=== PATIENT | male | born 1965 | race Caucasian/White ===

== ENCOUNTER 2018-03-06 12:32 | Inpatient (IN) ==
[2018-03-06] MEDS ORDERED: 0.9 % Sodium Chloride 1,000 ML IVC ONE ×2 (13:07→15:32)
[2018-03-06] MEDS ORDERED: Ondansetron 4 MG/2 ML VIAL IVP PRN ×2 (13:07→19:14)
[2018-03-06] MEDS ORDERED: *HR* FentaNYL (PF) 100 MCG/2 ML VIAL IVP ONE ×2 (13:09→16:09)
--- NOTE | 2018-03-06 13:12 | Emergency Department Note ---
Disposition Clinical Impression: Small bowel obstruction Abdominal pain Qualifiers: Abdominal location: unspecified location Qualified Code(s): R10.9 - Unspecified abdominal pain Nausea and vomiting Qualifiers: Vomiting type: unspecified Vomiting Intractability: unspecified Qualified Code( s): R11.2 - Nausea with vomiting, unspecified Leukocytosis Qualifiers: Leukocytosis type: unspecified Qualified Code(s): D72.829 - Elevated white blood cell count, unspecified Disposition: Admitted As Inpatient Condition: Fair Referrals: Jona Denton MD [Primary Care Provider] - Forms: ED Satisfaction Letter, Work/School Release Time of Disposition: 18:20 Abdominal Pain HPI - General Chief Complaint: ED Abdominal Pain Stated Complaint: Needs Xray S/p proceedure,vomiting Time Seen by Provider: 03/06/18 12:41 Source: patient, family Nursing Notes Reviewed: Yes Vital Signs Reviewed: Yes - History of Present Illness HPI Narrative: Patient is a 53-year-old male complains of acute onset of abdominal pain, nausea , vomiting that started this morning. Patient states that he recently had a pill camera study ordered by Dr. Clark his vehicle damage appraiser to investigate possible Crohn's disease. Study was initiated early yesterday morning. Patient should have passed the pill but patient denies seeing the pill in his bowel movement. Last bowel movement was very small times one day ago. Patient is unable to tolerate oral intake and no blood and secretions. Patient states pain 7/10 constant generalized crampiness without radiation. Pain Scale: 7 - Related Data Home Medications Medication Instructions Recorded Confirmed Cetirizine HCl [All Day Allergy] 10 mg PO DAILY 03/06/18 03/06/18 Allergies Allergy/AdvReac Type Severity Reaction Status Date / Time No Known Allergies Allergy Verified 03/06/18 15:38 All systems ED: reviewed and negative except as stated. Review of Systems: As Per HPI Constitutional: Denies: fever, chills ENT ED: Denies: congestion Cardiovascular: Denies: chest pain Respiratory: Denies: cough, dyspnea Gastrointestinal: Reports: abdominal pain, nausea, vomiting. Denies: hematemesis, melena Musculoskeletal: Denies: back pain Abdominal Pain PMH - Past Medical History Medical history: Reports: no medical history Male Surgical History: Reports: no surgical history Psychiatric history: Reports: no psych history - Social History Smoking status: Never smoker Alcohol use: Reports: occasionally Drug use: Reports: none Physical Exam Vital Signs Temperature 98.8 F 03/06/18 12:40 Pulse Rate 80 03/06/18 12:40 Respiratory Rate 18 03/06/18 12:40 Blood Pressure 155/102 03/06/18 12:40 O2 Sat by Pulse Oximetry 100 03/06/18 12:40 Temperature 98.8 F 03/06/18 12:40 Pulse Rate 80 03/06/18 12:40 Respiratory Rate 18 03/06/18 12:40 Blood Pressure 155/102 03/06/18 12:40 O2 Sat by Pulse Oximetry 100 03/06/18 12:40 Oxygen Delivery Oxygen Delivery Room Air CONSTITUTIONAL: Well-appearing; well-nourished; A&O X 3, in moderate distress. Patient is afebrile, hypertensive at 155/102. O2 sat 100% on room air. Patient is nontoxic appearing HEAD: Normocephalic; atraumatic EYES: PERRL, no scleral icterus NOSE: The nose is normal in appearance without rhinorrhea NECK: No JVD or distended neck veins RESP: Normal chest excursion with respiration; breath sounds clear and equal bilaterally; no wheezes, rhonchi, or rales CARD: Regular rhythm, without murmurs, rub or gallop ABD: Non-distended; generalized tenderness to palpation all abdominal mora, soft, without rigidity but has muscle guarding, no rebound tenderness and no pulsatile mass. No discoloration CHEST: No pain with palpation SKIN: Normal for age and race; warm and dry without diaphoresis ; no apparent lesions EXTREMITIES: Pulses are 2 plus and equal times 4 extremities, no peripheral edema or calf muscle pain - General Limitations: no limitations General appearance: alert, in no apparent distress Course - Reevaluation(s) Reevaluation #1: Patient well and nausea control. Controlling pain, and added additional dose of fentanyl Time: 16:11 - Consultations Consultation #1: Dr. Hummel of Gen. surgery states he was seated patient in consult. Time: 15:56 Consultation #2: Dr. Clark of gastroenterology recommends NG tube placement and surgical consult. admit to medicine Time: 16:15 Consultation #3: Aamir Badillo the hospitalist has accepted the patient for admission Time: 16:28 Vital Signs Temperature 98.8 F 03/06/18 12:40 Pulse Rate 80 03/06/18 12:40 Respiratory Rate 18 03/06/18 12:40 Blood Pressure 155/102 03/06/18 12:40 O2 Sat by Pulse Oximetry 100 03/06/18 12:40 Temperature 98.8 F 03/06/18 12:40 Pulse Rate 80 03/06/18 12:40 Respiratory Rate 18 03/06/18 12:40 Blood Pressure 155/102 03/06/18 12:40 O2 Sat by Pulse Oximetry 100 03/06/18 12:40 Oxygen Delivery Oxygen Delivery Room Air Abdominal Pain - MDM Narrative Medical decision making narrative: CT abdomen and pelvis ordered to identify possible retained pill camera that may be causing acute blockage of patient's GI tract.. Chest x-ray ordered to identify any damage to mediastinum. CT abdomen and pelvis shows small bowel obstruction. The pill camera was identified in the distal ileum which most likely the cause of the obstruction. Surgical consultation has been made, plan is for admission, along with placement of NG tube per gastroenterology Dr. Clark. The CT results per radiology. Abdomen/Pelvis CT 03/06/18 13:41 IMPRESSION: 1. Moderately distended small bowel loops. A metallic camera can be seen in the distal ileum which by history was inserted the day prior. Ileus or early bowel obstruction should be considered. 2. Small amount of free fluid in the pelvis. 3. Incidental fatty infiltration of the liver. Dr. Clark came and saw the patient in the emergency department. After discussion concerning the lack of nausea and vomiting, it was decided to hold on NG tube placement. Aamir Badillo the hospitalist has accepted the patient for admission - Lab Data Lab results reviewed: Yes I reviewed the patient's lab results. Lab results narrative: Short CBC 03/06/18 Range/Units 14:14 WBC 14.3 H (4.3-11.1) K/mcL Hgb 17.4 H (12.9-16.9) g/dL Hct 52.3 H (37.5-50.1) % Plt Count 169 (140-400) K/mcL Neutrophils # 13.2 H (1.6-8.9) K/mcL BMP 03/06/18 Range/Units 14:14 Sodium 140 (136-145) mEq/L Potassium 4.0 (3.5-5.1) mEq/L Chloride 103 (98-107) mEq/L Carbon Dioxide 27 (23-29) mEq/L BUN 13 (6-20) mg/dL Creatinine 1.11 (0.70-1.30) mg/dL Glucose 121 H (70-105) mg/dL Calcium 9.7 (8.6-10.3) mg/dL Liver Function 03/06/18 Range/Units 14:14 Total Bilirubin 2.4 H (0.3-1.0) mg/dL Direct Bilirubin 0.5 H (0.0-0.2) mg/dL AST 15 (13-39) Units/L ALT 21 (7-52) Units/L Alkaline Phosphatase 57 (34-104) Units/L Albumin 4.6 (3.5-5.7) g/dL Result diagrams: 03/06/18 14:14 03/06/18 14:14 Lab Results 03/06/18 03/06/18 03/06/18 Range/Units 14:14 14:14 14:14 WBC 14.3 H (4.3-11.1) K/mcL RBC 5.77 H (4.19-5.50) M/mcL Hgb 17.4 H (12.9-16.9) g/dL Hct 52.3 H (37.5-50.1) % MCV 90.6 (83.0-100.0) fL MCH 30.2 (28.0-33.3) pg MCHC 33.3 (31.6-35.5) g/dL RDW 13.7 (11.5-14.5) % Plt Count 169 (140-400) K/mcL MPV 9.1 L (9.4-12.4) fL Immature Gran % 0.3 (0-4) % Seg Neutrophils % 92.3 % Lymphocytes % 3.0 % Monocytes % 4.2 % Eosinophils % 0.0 % Basophils % 0.2 % Neutrophils # 13.2 H (1.6-8.9) K/mcL Lymphocytes # 0.4 L (0.6-4.6) K/mcL Monocytes # 0.6 (0.0-1.3) K/mcL Eosinophils # 0.0 (0.0-0.6) K/mcL Basophils # 0.0 (0.0-0.2) K/mcL Sodium 140 (136-145) mEq/L Potassium 4.0 (3.5-5.1) mEq/L Chloride 103 (98-107) mEq/L Carbon Dioxide 27 (23-29) mEq/L BUN 13 (6-20) mg/dL Creatinine 1.11 (0.70-1.30) mg/dL Est GFR ( Amer) > 60 (> 60) Est GFR (Non-Af Amer) > 60 (> 60) BUN/Creatinine Ratio 12 (6-26) Glucose 121 H (70-105) mg/dL Calculated Osmolality 291 (280-300) Lactic Acid 1.5 (0.5-2.2) mmol/L Calcium 9.7 (8.6-10.3) mg/dL Total Bilirubin 2.4 H (0.3-1.0) mg/dL Direct Bilirubin 0.5 H (0.0-0.2) mg/dL Indirect Bilirubin 1.9 H (0.0-1.2) mg/dL AST 15 (13-39) Units/L ALT 21 (7-52) Units/L Alkaline Phosphatase 57 (34-104) Units/L Serum Total Protein 7.2 (6.4-8.9) g/dL Albumin 4.6 (3.5-5.7) g/dL Globulin 2.6 (2.4-3.5) g/dL Albumin/Globulin Ratio 1.8 (1.1-2.2) Lipase 16 (11-82) Units/L - Radiology Data Radiology results reviewed: Yes I reviewed the patient's radiology results. Chest X-Ray 03/06/18 13:14 IMPRESSION: No acute process. D/ / Vinay Baron MD / Vinay Baron MD Interpreting Provider: Vinay Baron MD Abdomen/Pelvis CT 03/06/18 13:41 IMPRESSION: 1. Moderately distended small bowel loops. A metallic camera can be seen in the distal ileum which by history was inserted the day prior. Ileus or early bowel obstruction should be considered. 2. Small amount of free fluid in the pelvis. 3. Incidental fatty infiltration of the liver. D/ / 03/06/2018 14:21:53 Keya Duran MD / agustín Interpreting Provider: Keya Duran MD - EKG Data EKG attestation: Yes I reviewed and interpreted this EKG. EKG results narrative: EKG taken 03/06/2018 at 1408 hrs. shows a sinus rhythm at a rate of 68 beats minute with no acute ST elevations or depressions in any leads, no QRS widening QT prolongation.
--- NOTE | 2018-03-06 13:40 | Emergency Department Note ---
Disposition Clinical Impression: Small bowel obstruction Abdominal pain Qualifiers: Abdominal location: unspecified location Qualified Code(s): R10.9 - Unspecified abdominal pain Nausea and vomiting Qualifiers: Vomiting type: unspecified Vomiting Intractability: unspecified Qualified Code( s): R11.2 - Nausea with vomiting, unspecified Disposition: Admitted As Inpatient Condition: Fair General Adult HPI - General Chief complaint: ED Abdominal Pain Stated complaint: Needs Xray S/p proceedure,vomiting Time Seen by Provider: 03/06/18 12:41 Source: patient, family Limitations: no limitations - History of Present Illness Pain Scale: 7 - Related Data Home Medications Medication Instructions Recorded Confirmed Cetirizine HCl [All Day Allergy] 10 mg PO DAILY 03/06/18 03/06/18 Allergies Allergy/AdvReac Type Severity Reaction Status Date / Time No Known Allergies Allergy Verified 03/06/18 15:38 Constitutional: Denies: fever, chills ENT ED: Denies: congestion Cardiovascular: Denies: chest pain Respiratory: Denies: cough, dyspnea Gastrointestinal: Reports: abdominal pain, nausea, vomiting. Denies: hematemesis, melena Musculoskeletal: Denies: back pain Past Medical History - Past Medical History Medical history: Reports: no medical history Surgical history: Reports: herniorrhaphy, vasectomy Psychiatric history: Reports: no psych history - Social History Smoking Status: Never smoker Smokeless Tobacco Status: No Alcohol use: Reports: occasionally Drug use: Reports: none Physical Exam - General Limitations: no limitations General appearance: alert, in no apparent distress Course Vital Signs Temperature 98.8 F 03/06/18 12:40 Pulse Rate 80 03/06/18 12:40 Respiratory Rate 18 03/06/18 12:40 Blood Pressure 155/102 03/06/18 12:40 O2 Sat by Pulse Oximetry 100 03/06/18 12:40 Temperature 99.3 F 03/06/18 17:48 Pulse Rate 78 03/06/18 17:48 Respiratory Rate 14 03/06/18 17:48 Blood Pressure 135/73 03/06/18 17:48 O2 Sat by Pulse Oximetry 97 03/06/18 17:48 Oxygen Delivery Oxygen Delivery Room Air Medical Decision Making - Lab Data Result diagrams: 03/06/18 14:14 03/06/18 14:14 Lab Results 03/06/18 03/06/18 03/06/18 Range/Units 14:14 14:14 14:14 WBC 14.3 H (4.3-11.1) K/mcL RBC 5.77 H (4.19-5.50) M/mcL Hgb 17.4 H (12.9-16.9) g/dL Hct 52.3 H (37.5-50.1) % MCV 90.6 (83.0-100.0) fL MCH 30.2 (28.0-33.3) pg MCHC 33.3 (31.6-35.5) g/dL RDW 13.7 (11.5-14.5) % Plt Count 169 (140-400) K/mcL MPV 9.1 L (9.4-12.4) fL Immature Gran % 0.3 (0-4) % Seg Neutrophils % 92.3 % Lymphocytes % 3.0 % Monocytes % 4.2 % Eosinophils % 0.0 % Basophils % 0.2 % Neutrophils # 13.2 H (1.6-8.9) K/mcL Lymphocytes # 0.4 L (0.6-4.6) K/mcL Monocytes # 0.6 (0.0-1.3) K/mcL Eosinophils # 0.0 (0.0-0.6) K/mcL Basophils # 0.0 (0.0-0.2) K/mcL Sodium 140 (136-145) mEq/L Potassium 4.0 (3.5-5.1) mEq/L Chloride 103 (98-107) mEq/L Carbon Dioxide 27 (23-29) mEq/L BUN 13 (6-20) mg/dL Creatinine 1.11 (0.70-1.30) mg/dL Est GFR ( Amer) > 60 (> 60) Est GFR (Non-Af Amer) > 60 (> 60) BUN/Creatinine Ratio 12 (6-26) Glucose 121 H (70-105) mg/dL Calculated Osmolality 291 (280-300) Lactic Acid 1.5 (0.5-2.2) mmol/L Calcium 9.7 (8.6-10.3) mg/dL Total Bilirubin 2.4 H (0.3-1.0) mg/dL Direct Bilirubin 0.5 H (0.0-0.2) mg/dL Indirect Bilirubin 1.9 H (0.0-1.2) mg/dL AST 15 (13-39) Units/L ALT 21 (7-52) Units/L Alkaline Phosphatase 57 (34-104) Units/L Serum Total Protein 7.2 (6.4-8.9) g/dL Albumin 4.6 (3.5-5.7) g/dL Globulin 2.6 (2.4-3.5) g/dL Albumin/Globulin Ratio 1.8 (1.1-2.2) Lipase 16 (11-82) Units/L Attestation Statement - Attestation Attestation: I examined this patient and my medical decision-making was reviewed with the ORTHOTIC/PROSTHETIC CLINICIAN/PA/Advanced Practice Nurse/Resident Physician. I agree with the documented findings, disposition and treatment plan as described except to the extent set forth below. Patient does have generalized abdominal pain which is concerning as he did have a pill endoscopy yesterday. Has not yet seen the pill. Patient does have further evaluation progress initially with a x-ray to see if we can see the pill inside of him but with his generalized abdominal pain further evaluation will be done for that also. No rigidity rebound or guarding but does have significant and generalized abdominal pain. 1340 I did review the EKG showing normal sinus rhythm with rate of 68 without acute ischemic change. Additional test results are pending 1419
[2018-03-06 14:31] LABS: Basophils % 0.2 %; Hematocrit 52.3 % (37.5-50.1); Hemoglobin 17.4 g/dL (12.9-16.9); Immature Granulocytes % 0.3 % (0-4); Lymphocytes # 0.4 K/mcL (0.6-4.6); Mean Corpuscular HGB Conc 33.3 g/dL (31.6-35.5); Mean Corpuscular Hemoglobin 30.2 pg (28.0-33.3); Mean Corpuscular Volume 90.6 fL (83.0-100.0); Mean Platelet Volume 9.1 fL (9.4-12.4); Monocytes # 0.6 K/mcL (0.0-1.3); Monocytes % 4.2 %; Neutrophils # 13.2 K/mcL (1.6-8.9); Platelet Count 169 K/mcL (140-400); Red Blood Count 5.77 M/mcL (4.19-5.50); Red Cell Distribution Width 13.7 % (11.5-14.5); Segmented Neutrophils % 92.3 %
[2018-03-06 14:57] LABS: Alanine Aminotransferase 21 Units/L (7-52); Albumin 4.6 g/dL (3.5-5.7); Albumin/Globulin Ratio 1.8 (1.1-2.2); Alkaline Phosphatase 57 Units/L (34-104); Aspartate Amino Transferase 15 Units/L (13-39); BUN/Creatinine Ratio 12 (6-26); Bilirubin,Direct 0.5 mg/dL (0.0-0.2); Bilirubin,Indirect 1.9 mg/dL (0.0-1.2); Bilirubin,Total 2.4 mg/dL (0.3-1.0); Blood Urea Nitrogen 13 mg/dL (6-20); Calcium 9.7 mg/dL (8.6-10.3); Carbon Dioxide 27 mEq/L (23-29); Chloride 103 mEq/L (98-107); Globulin 2.6 g/dL (2.4-3.5); Glucose 121 mg/dL (70-105); Lipase 16 Units/L (11-82); Osmolality,Calculated 291 (280-300); Sodium 140 mEq/L (136-145); Total Protein 7.2 g/dL (6.4-8.9); eGFR For African Americans > 60 (> 60); eGFR For Non-African Americans > 60 (> 60)
--- NOTE | 2018-03-06 18:26 | General Surgery Consult Note ---
Date of Encounter: 03/06/18 Time of Encounter: 18:24 Assessment and Plan (1) Small bowel obstruction Current Visit: Yes Status: Acute I explained to the patient that I personally reviewed the CT scan images and report. He does not feel nauseous at this time and he feels that his abdomen is normal in size but he did vomit not too long ago. I am concerned that he may continue to have episodes of vomiting. He did have thickness of the distal ileum and the capsule may still be present, causing an obstruction. I think NG tube decompression is appropriate so that it can decrease the diameter of the small bowel loops if surgery is necessary and possibly help with the obstruction and/or potentially decrease the amount of inflammation present to allow for passage of the capsule. Will continue to follow with you and I have explained to the patient and family that he still may require surgery for the bowel obstruction. The patient agrees with the above plan. History of Present Illness Consult date: 03/06/18 Reason for consult: other (bowel obstruction) Requesting physician: Eamon Clark History of present illness: The patient is a 53-year-old male with a past medical history significant for basal cell carcinoma of the forehead and possible diagnosis of Crohn's who presents to [facility] secondary to a bowel obstruction. The patient is been evaluated by gastroenterology and states that in 2016 he had studies and blood has perform and there was a question with diagnosis of Crohn's disease. He been having intermittent symptoms of diarrhea with prominence up to 2-3 times per day without rectal bleeding. He admits to some lower abdominal discomfort as well as been intermittent in nature. He is been reestablished to gastroenterology here at [place] and had an EGD and colonoscopy in October 2017 without any findings consistent for inflammatory bowel disease. He subsequently had a capsule endoscopy started yesterday and states that he returned the "michel pack" yesterday afternoon. He is had several episodes of it having cramping with some nausea and stated this a.m. he had a small bowel movement and had vomiting. He does not feel nauseous at this time and does not feel at his abdomen is distended. He is not having any flatus normally has about but now 1-2 times per day (he has changed his diet over the past several months to a year and is noted decreased diarrhea with pelvis 1-2 times per day). Past Med Surg Social Fam HX - Past Medical History Medical history: no medical history Psychiatric history: no psych history - Past Surgical History Surgical History: herniorrhaphy, vasectomy, other (Carpal tunnel, excision of forehead skin cancer) - Social History Smoking Status: Never smoker Smokeless Tobacco Status: No Alcohol use: occasionally Drug use: none Medications and Allergies Cetirizine HCl [All Day Allergy] 10 mg PO DAILY 03/06/18 [History] 3 Allergy/AdvReac Type Severity Reaction Status Date / Time No Known Allergies Allergy Verified 03/06/18 15:38 Review of Systems All systems PM: reviewed and no additional remarkable complaints except as stated All systems PM: The remainder of the systems were reviewed and are negative General Surgery Exam Initial Vital Signs Temp Pulse Resp BP Pulse Ox 98.8 F 80 18 155/102 100 03/06/18 12:40 03/06/18 12:40 03/06/18 12:40 03/06/18 12:40 03/06/18 12:40 - Eyes PERRL, normal ocular movement - Respiratory normal expansion, normal respiratory effort, clear to auscultation - Cardiovascular Cardiovascular exam: Present: RRR, no murmurs/rubs/gallops - Abdomen Abdomen general surgery: Present: bowel sounds present, soft, tender (Mild tenderness palpation the lower abdominal region. No masses palpated. Mild tympany) Exam Initial Vital Signs Temp Pulse Resp BP Pulse Ox 98.8 F 80 18 155/102 100 03/06/18 12:40 03/06/18 12:40 03/06/18 12:40 03/06/18 12:40 03/06/18 12:40 Results - Labs 03/06/18 14:14 03/06/18 14:14 Abnormal lab results WBC 14.3 K/mcL (4.3-11.1) H 03/06/18 14:14 RBC 5.77 M/mcL (4.19-5.50) H 03/06/18 14:14 Hgb 17.4 g/dL (12.9-16.9) H 03/06/18 14:14 Hct 52.3 % (37.5-50.1) H 03/06/18 14:14 MPV 9.1 fL (9.4-12.4) L 03/06/18 14:14 Neutrophils # 13.2 K/mcL (1.6-8.9) H 03/06/18 14:14 Lymphocytes # 0.4 K/mcL (0.6-4.6) L 03/06/18 14:14 Glucose 121 mg/dL (70-105) H 03/06/18 14:14 Total Bilirubin 2.4 mg/dL (0.3-1.0) H 03/06/18 14:14 Direct Bilirubin 0.5 mg/dL (0.0-0.2) H 03/06/18 14:14 Indirect Bilirubin 1.9 mg/dL (0.0-1.2) H 03/06/18 14:14 All other labs normal. - Imaging CT scan - abdomen: report reviewed, image reviewed (CT scan shows evidence of dilated small bowel loops with thickening of the distal/terminal ileum and a filling defect at the area proximal to the thickening of the terminal ileum consistent with the capsule.) Consult Discharge Plan - Plan Referrals: Jona Denton MD [Primary Care Provider] -
[2018-03-06] MEDS ORDERED: *HR* Promethazine 25 MG/ML VIAL IM PRN (19:14)
[2018-03-06] MEDS ORDERED: Naloxone 0.4 MG/ML INJ IVP PRN (19:14)
[2018-03-06] MEDS ORDERED: OXYCODONE Oral CONC 10 MG/0.5 ML ORAL.SYG SL PRN ×2 (19:14)
--- NOTE | 2018-03-06 19:29 | Internal Med History&Physical ---
Date of Encounter: 03/06/18 Time of Encounter: 19:27 Internal Medicine - H&P: HPI Chief complaint: Abdominal Pain, Nausea, Vomiting Admitted From: Emergency Dept Plans for Post Hospital Care: Home History of present illness: Mr. Joshi is a 53 year old male who presented to ED this afternoon for acute onset of abdominal pain, nausea, vomiting that started early this morning. He states that he had large meal last night and went to bed. This morning he woke up early and was having crampy abdominal pain, nausea, and vomiting. He went to work despite this and had more episodes of nausea and vomiting. He decided to come home and go to ED. He is currently being followed by GI for chronic diarrhea. He had EGD and colonoscopy few months ago to look for Crohn's disease , but results were inconclusive. He subsequently was scheduled for pill endoscopy, which he had placed 2 days ago. He had turned in monitor to GI yesterday. However, he still has not passed the pill in his bowel movement. Last bowel movement was very small one yesterday. During my interview, patient is pain-free and nausea-free. He received zofran and fentanyl in the ED. I was asked to admit patient for SBO. Past Med Surg Social Fam HX - Past Medical History Attestation: Yes The following information was validated with the patient. Source: patient Medical history: no medical history Psychiatric history: no psych history - Past Surgical History Surgical History: herniorrhaphy, vasectomy, other (Carpal tunnel, excision of forehead skin cancer) - Social History Smoking Status: Never smoker Smokeless Tobacco Status: No Alcohol use: occasionally Drug use: none - Additional Family History Additional family history: No significant PMH per patient. Internal Medicine - H&P: Meds Cetirizine HCl [All Day Allergy] 10 mg PO DAILY 03/06/18 [History] 3 Allergy/AdvReac Type Severity Reaction Status Date / Time No Known Allergies Allergy Verified 03/06/18 15:38 All Systems PM: A 10-system review of systems was performed and is negative for pertinent findings except as documented above in the HPI. - Constitutional Constitutional: anorexia, no chills, no fatigue, no fever(s), no lethargy, no malaise, no weakness, no weight gain, no weight loss - EENT Eyes: no blurry vision, no diplopia, no discharge, no loss of vision, no pain Ears: no decreased hearing, no ear pain Nose, mouth and throat: no dysphagia, no mouth lesions, no mouth pain, no nasal congestion, no nasal discharge, no neck pain, no sinus pain, no sore throat - Cardiovascular Cardiovascular ROS IM: no chest pain, no diaphoresis, no dyspnea, no dyspnea on exertion, no edema, no lightheadedness, no palpitations, no syncope - Respiratory Respiratory: no cough, no dyspnea, no hemoptysis, no dyspnea on exertion, no wheezing, no chest congestion - Gastrointestinal Gastrointestinal: abdominal pain, nausea, vomiting, no change in bowel habits, no constipation, no diarrhea, no dysphagia, no heartburn, no hematemesis, no hematochezia, no melena - Genitourinary Genitourinary ROS male: no difficulty urinating, no dysuria, no hematuria, no urinary frequency - Musculoskeletal Musculoskeletal ROS IM: no arthralgias, no joint swelling, no muscle cramps, no muscle weakness, no myalgias - Integumentary Integumentary IM: no erythema, no rash, no skin ulcer, no jaundice - Neurological Neurological ROS: no abnormal gait, no abnormal speech, no behavioral changes, no confusion, no dizziness, no focal weakness, no headache(s), no vertigo, no weakness - Psychiatric Psychiatric: no anxiety, no depression, no hallucinations - Endocrine Endocrine IM: no cold intolerance, no fatigue, no heat intolerance, no polydipsia, no polyphagia, no polyuria - Constitutional Vitals: Temp Pulse Resp BP Pulse Ox 99.1 F 75 16 134/79 96 03/06/18 18:51 03/06/18 18:51 03/06/18 18:51 03/06/18 18:51 03/06/18 18:51 General appearance: Present: cooperative, A&O X 3, pleasant, no acute distress, obese, answers questions appropriately - Head Head exam: Present: atraumatic, normocephalic - Eye Eye exam: Present: EOMI, PERRL. Absent: conjunctival injection, nystagmus, scleral icterus - ENT ENT exam: Present: mucous membranes moist, normal external ear exam, normal oropharynx - Neck Neck exam general surgery: Present: supple, trachea midline. Absent: lymphadenopathy, tenderness, thyromegaly - Respiratory Respiratory exam: Present: CTAB. Absent: accessory muscle use, rales, rhonchi, wheezes Additional comments: Normal WOB - Cardiovascular Cardiovascular exam: Present: RRR, +S1, +S2. Absent: diastolic murmur, gallop, rubs, systolic murmur Additional comments: No BLE edema - GI/Abdominal GI/Abdominal exam: Present: normal bowel sounds, soft. Absent: guarding, hepatomegaly, mass, rebound, splenomegaly Additional comments: Mild abdominal distension, moderate TTP diffusely across entire abdomen - Extremities Exam Extremities exam: Present: normal capillary refill, normal inspection. Absent: calf tenderness, cyanotic, pedal edema, tenderness - Neurological Exam Neurological exam: Present: alert, CN II-XII intact, oriented X3, no focal deficits, strengths equal and symetr throughout. Absent: abnormal gait, facial droop, speech deficit - Psychiatric Psychiatric exam: Present: normal affect, normal mood. Absent: anxious, depressed - Skin Skin exam: Present: dry, intact, warm. Absent: cyanosis, rash Internal Med - H&P Results - Labs CBC & Chem 7: 03/06/18 14:14 03/06/18 14:14 - VTE Reasons for not Prescribing Prophylaxis: Treatment not Indicated - Low risk for VTE Documentation of Mechanical Device: Intermittent pneumatic compression device - Assessment and plan (1) Small bowel obstruction Current Visit: Yes Status: Acute Assessment and plan: Likely secondary to camera capsule being stuck in distal ileum, as evidenced by thickened distal ileum on CT abdomen/pelvis. Patient is pain-free and nausea- free at this time. Will admit as inpatient. GI and surgery consulted; appreciate input. Make NPO. Will defer placement of NG tube to surgery. Start IV NS at 125 ml/hr. Start zofran 4 mg IV Q6H PRN nausea/vomiting. Start phenergan 12.5 mg IM Q6H PRN for nausea/vomiting not relieved by zofran. Start SL oxycodone and IV fentanyl PRN for pain control. Will likely need surgery if he does not pass camera capsule overnight. Repeat labwork in AM. (2) Abdominal pain Current Visit: Yes Status: Acute Assessment and plan: Likely secondary to SBO. Pain control as per above. Qualifiers: Abdominal location: generalized Qualified Code(s): R10.84 - Generalized abdominal pain (3) Nausea and vomiting Current Visit: Yes Status: Acute Assessment and plan: Likely secondary to SBO. Anti-emetics as per above. Qualifiers: Vomiting type: unspecified Vomiting Intractability: non-intractable Qualified Code(s): R11.2 - Nausea with vomiting, unspecified (4) Leukocytosis Current Visit: Yes Status: Acute Assessment and plan: WBC = 14.3. Likely secondary to N/V. Antiemetics as per above. Should improve with treatment of underlying SBO. Repeat CBC in AM. Qualifiers: Leukocytosis type: unspecified Qualified Code(s): D72.829 - Elevated white blood cell count, unspecified (5) DVT prophylaxis Current Visit: Yes Status: Acute Assessment and plan: Low risk. Start SCDs. - Time Spent With Patient Total time spent is greater than 50% in coordination of care (as documented) at patient's floor/unit and/or counseling patient: 25 - 35 minutes
[2018-03-06] MEDS: *HR* FentaNYL (PF) 100 MCG/2 ML VIAL IVP PRN (22:17)
[2018-03-06] MEDS: 0.9 % Sodium Chloride 1,000 ML IVC SCH (22:26)
[2018-03-07] MEDS: *HR* FentaNYL (PF) 100 MCG/2 ML VIAL IVP PRN ×3 (02:37→11:35)
[2018-03-07 06:16] LABS: Basophils % 0.5 %; Eosinophils % 0.3 %; Hematocrit 49.9 % (37.5-50.1); Hemoglobin 16.1 g/dL (12.9-16.9); Immature Granulocytes % 0.2 % (0-4); Lymphocytes # 0.6 K/mcL (0.6-4.6); Lymphocytes % 8.7 %; Mean Corpuscular HGB Conc 32.3 g/dL (31.6-35.5); Mean Corpuscular Hemoglobin 29.7 pg (28.0-33.3); Mean Corpuscular Volume 91.9 fL (83.0-100.0); Mean Platelet Volume 9.3 fL (9.4-12.4); Monocytes # 0.6 K/mcL (0.0-1.3); Neutrophils # 5.1 K/mcL (1.6-8.9); Platelet Count 155 K/mcL (140-400); Red Blood Count 5.43 M/mcL (4.19-5.50); Red Cell Distribution Width 13.9 % (11.5-14.5); Segmented Neutrophils % 80.3 %
[2018-03-07 06:33] LABS: Alanine Aminotransferase 19 Units/L (7-52); Albumin 3.8 g/dL (3.5-5.7); Albumin/Globulin Ratio 1.7 (1.1-2.2); Alkaline Phosphatase 44 Units/L (34-104); Aspartate Amino Transferase 13 Units/L (13-39); BUN/Creatinine Ratio 18 (6-26); Bilirubin,Total 2.7 mg/dL (0.3-1.0); Blood Urea Nitrogen 17 mg/dL (6-20); Calcium 8.3 mg/dL (8.6-10.3); Carbon Dioxide 25 mEq/L (23-29); Chloride 108 mEq/L (98-107); Globulin 2.3 g/dL (2.4-3.5); Glucose 121 mg/dL (70-105); Osmolality,Calculated 295 (280-300); Potassium 3.9 mEq/L (3.5-5.1); Sodium 141 mEq/L (136-145); Total Protein 6.1 g/dL (6.4-8.9); eGFR For African Americans > 60 (> 60); eGFR For Non-African Americans > 60 (> 60)
[2018-03-07] MEDS: 0.9 % Sodium Chloride 1,000 ML IVC SCH ×3 (07:44→20:55)
[2018-03-07] MEDS ORDERED: Chloraseptic Spray 177 ML BOTTLE MM PRN (07:58)
--- NOTE | 2018-03-07 08:16 | General Surgery Consult Note ---
Date of Encounter: 03/07/18 Time of Encounter: 08:00 Assessment and Plan (1) Small bowel obstruction Current Visit: Yes Status: Acute SBO secondary to foreign body (capsule endoscopy) NPO IV fluids- 125ml/hour Supportive care Strict I&O Risks, benefits, alternatives and expected outcomes have been reviewed with the patient and we will plan to proceed with an exploratory laparotomy for removal of foreign body and small bowel resection with Dr. Hummel or Dr. Patterson in the next 24 hours Incentive Spirometer every 1 hours while awake History of Present Illness Consult date: 03/07/18 Requesting physician: Ben Bae History of present illness: Mr. Joshi is a 53 year old male who presented to the ED with complaints of diffuse abdominal pain with associated nausea/vomiting. He states that he is being worked up for Crohn's disease per gastroenterology and he started a capsule endoscopy on Saturday. He states that he woke up early yesterday morning with diffuse/severe and cramping abdominal pain. The pain was followed by multiple episodes of nausea and vomiting. Denies any hematemesis of coffee ground emesis. He has never experienced pain this severe in the past. He has not been able to pass flatus since admission and his last bowel movement was yesterday morning. He reports that it was very minimal. He typically has a bowel movement 1-2 times per day. Denies any shortness of breath of chest pains. Denies any shortness of breath. Denies any fevers/chills. He presents to the ED and a CT scan was complete. The CT demonstrates the capsule around the terminal ileum with multiple dilated loops of small consistent with small bowel obstruction. The patient reports that he is being worked up for Crohn's disease. He has had ongoing abdominal discomfort for approximately 1 year. He reports intermittent diarrhea as well. Denies any melena or hematochezia. He was referred to gastroenterology for work-up. He is s/p EGD and Colonoscopy in September of [address] Clark. Past Med Surg Social Fam HX - Past Medical History Source: patient, old records reviewed Medical history: no medical history Psychiatric history: no psych history - Past Surgical History Surgical History: herniorrhaphy (Bilateral inguinal hernia repair as a child), vasectomy, other (Carpal tunnel (bilateral), excision of forehead skin cancer, vasectomy, Colonoscopy/EGD in September 2017) - Social History Smoking Status: Never smoker Smokeless Tobacco Status: No Alcohol use: occasionally Drug use: none Current living situation: Home - Independent Activity Level: Independent ambulation - Family History Mother Hx Family Neurologic Disorders: Yes (dementia) Medications and Allergies Cetirizine HCl [All Day Allergy] 10 mg PO DAILY 03/06/18 [History] 3 Allergy/AdvReac Type Severity Reaction Status Date / Time No Known Allergies Allergy Verified 03/06/18 15:38 Review of Systems All systems PM: reviewed and no additional remarkable complaints except as stated (in the HPI) All systems PM: The remainder of the systems were reviewed and are negative General Surgery Exam Initial Vital Signs Temp Pulse Resp BP Pulse Ox 98.8 F 80 18 155/102 100 03/06/18 12:40 03/06/18 12:40 03/06/18 12:40 03/06/18 12:40 03/06/18 12:40 - General physical appearance well developed, well nourished, moderate pain - Eyes normal ocular movement - ENT dry mucosa, atraumatic, normocephalic - Neck trachea midline - Respiratory normal respiratory effort, clear to auscultation - Cardiovascular Cardiovascular exam: Present: RRR, 15, 16 - Abdomen Abdomen general surgery: Present: bowel sounds present (minimal), soft, tender, wound (NG tube to LIWS with bilious drainage noted (350ml since midnight)) Abdominal Tenderness: Present: diffusely - Integumentary Integumentary general surgery: Present: warm and dry - Neurologic Present: CN 2-12 grossly intact - Psychiatric Psychiatric general surgery: Present: appropriate, oriented to person, oriented to place, oriented to time, speech is normal, memory intact Exam Initial Vital Signs Temp Pulse Resp BP Pulse Ox 98.8 F 80 18 155/102 100 03/06/18 12:40 03/06/18 12:40 03/06/18 12:40 03/06/18 12:40 03/06/18 12:40 Results - Labs 03/07/18 05:43 03/07/18 05:43 Abnormal lab results MPV 9.3 fL (9.4-12.4) L 03/07/18 05:43 Chloride 108 mEq/L (98-107) H 03/07/18 05:43 Glucose 121 mg/dL (70-105) H 03/07/18 05:43 POC Glucose 102 mg/dL (70-99) H 03/07/18 05:31 Calcium 8.3 mg/dL (8.6-10.3) L 03/07/18 05:43 Total Bilirubin 2.7 mg/dL (0.3-1.0) H 03/07/18 05:43 Direct Bilirubin 0.5 mg/dL (0.0-0.2) H 03/06/18 14:14 Indirect Bilirubin 1.9 mg/dL (0.0-1.2) H 03/06/18 14:14 Serum Total Protein 6.1 g/dL (6.4-8.9) L 03/07/18 05:43 Globulin 2.3 g/dL (2.4-3.5) L 03/07/18 05:43 Diabetes panel 03/07/18 Range/Units 05:43 Sodium 141 (136-145) mEq/L Potassium 3.9 (3.5-5.1) mEq/L Chloride 108 H (98-107) mEq/L Carbon Dioxide 25 (23-29) mEq/L BUN 17 (6-20) mg/dL Creatinine 0.93 (0.70-1.30) mg/dL Glucose 121 H (70-105) mg/dL Calcium 8.3 L (8.6-10.3) mg/dL AST 13 (13-39) Units/L ALT 19 (7-52) Units/L Alkaline Phosphatase 44 (34-104) Units/L Albumin 3.8 (3.5-5.7) g/dL Calcium panel 03/07/18 Range/Units 05:43 Calcium 8.3 L (8.6-10.3) mg/dL Albumin 3.8 (3.5-5.7) g/dL Pituitary panel 03/07/18 Range/Units 05:43 Sodium 141 (136-145) mEq/L Potassium 3.9 (3.5-5.1) mEq/L Chloride 108 H (98-107) mEq/L Carbon Dioxide 25 (23-29) mEq/L BUN 17 (6-20) mg/dL Creatinine 0.93 (0.70-1.30) mg/dL Glucose 121 H (70-105) mg/dL Calcium 8.3 L (8.6-10.3) mg/dL Adrenal panel 03/07/18 Range/Units 05:43 Sodium 141 (136-145) mEq/L Potassium 3.9 (3.5-5.1) mEq/L Chloride 108 H (98-107) mEq/L Carbon Dioxide 25 (23-29) mEq/L BUN 17 (6-20) mg/dL Creatinine 0.93 (0.70-1.30) mg/dL Glucose 121 H (70-105) mg/dL Calcium 8.3 L (8.6-10.3) mg/dL Total Bilirubin 2.7 H (0.3-1.0) mg/dL AST 13 (13-39) Units/L ALT 19 (7-52) Units/L Alkaline Phosphatase 44 (34-104) Units/L Albumin 3.8 (3.5-5.7) g/dL All other labs normal. - Imaging Additional studies: Chest X-Ray 03/06/18 13:14 IMPRESSION: No acute process. D/ / Vinay Baron MD / Vinay Baron MD Interpreting Provider: Vinay Baron MD Abdomen/Pelvis CT 03/06/18 13:41 IMPRESSION: 1. Moderately distended small bowel loops. A metallic camera can be seen in the distal ileum which by history was inserted the day prior. Ileus or early bowel obstruction should be considered. 2. Small amount of free fluid in the pelvis. 3. Incidental fatty infiltration of the liver. D/ / 03/06/2018 14:21:53 Keya Duran MD / agustín Interpreting Provider: Keya Duran MD X-Ray 03/06/18 22:55 IMPRESSION: The enteric tube is in good position in the stomach. D/ / Darwin Christina MD / Darwin Christina MD Interpreting Provider: Darwin Christina MD Abdomen X-Ray 03/07/18 05:00 IMPRESSION: Persistent small bowel obstruction. D/ / Darwin Christina MD / Darwin Christina MD Interpreting Provider: Darwin Christina MD Consult Discharge Plan - Plan Referrals: Jona Denton MD [Primary Care Provider] -
--- NOTE | 2018-03-07 08:52 | General Surgery Progress Note ---
<Charlette Freire - Last Filed: 03/07/18 08:57> Date of Encounter: 03/07/18 Time of Encounter: 08:00 - Assessment and Plan (1) Small bowel obstruction Current Visit: Yes Status: Acute NPO NG tube to LIWS IV fluids- 125ml/hour Supportive care and pain control Risks, benefits, alternatives and expected outcomes reviewed and patient is in agreement to proceed with an exploratory laparotomy for foreign body removal and small bowel resection with Dr. Hummel or Dr. Patterson in the next 24 hours PPI therapy daily Incentive Spirometer every 1 hour while awake (2) Leukocytosis Current Visit: Yes Status: Resolved WBC- 14.3>6.3 Qualifiers: Leukocytosis type: unspecified Qualified Code(s): D72.829 - Elevated white blood cell count, unspecified (3) DVT prophylaxis Current Visit: Yes Status: Acute EPCDs to bilateral lower extremities for DVT prophylaxis Ambulate hallways TID with assistance Subjective Patient reports: no new complaints, still having pain, voiding w/o difficulty, no flatus, no bowel movement (since yesterday morning), afebrile Objective Vital Signs - Last 8 Hours Temp Pulse Resp BP Pulse Ox 03/07/18 07:10 98.4 F 71 18 121/74 96 03/07/18 05:30 98.0 F 73 16 137/82 94 Intake and Output 03/06/18 03/07/18 03/07/18 23:59 07:59 15:59 Intake Total 900 / 900 1000 / 1000 Output Total 350 / 350 650 / 650 Balance 550 / 550 350 / 350 Intake: IV Fluids 900 / 900 1000 / 1000 0.9 % Sodium Chloride 1,000 ML 900 / 900 1000 / 1000 @ 125 mls/hr IVC .Q8H [facility] Rx#: [id number] Oral 0 / 0 0 / 0 Output: Urine 0 / 0 400 / 400 Gastric Drainage 350 / 350 250 / 250 Other: Meal npo Weight 89.2 kg Blood Glucose* 110 102 - General physical appearance well developed, well nourished, moderate pain - Eyes normal ocular movement - ENT normal mucosa, atraumatic, normocephalic - Neck Neck exam: trachea midline - Respiratory normal respiratory effort, clear to auscultation - Cardiovascular Cardiovascular exam: Present: RRR - Abdomen Abdomen: Present: bowel sounds present (minimal), soft, tender, wound (NG tube to LIWS with 350ml of bilious drainage noted since midnight) Abdominal Tenderness: diffusely - Neurologic CN 2-12 grossly intact - Psychiatric oriented to time, oriented to person, oriented to place, speech is normal, memory intact - Labs 03/07/18 05:43 03/07/18 05:43 Diabetes panel 03/07/18 Range/Units 05:43 Sodium 141 (136-145) mEq/L Potassium 3.9 (3.5-5.1) mEq/L Chloride 108 H (98-107) mEq/L Carbon Dioxide 25 (23-29) mEq/L BUN 17 (6-20) mg/dL Creatinine 0.93 (0.70-1.30) mg/dL Glucose 121 H (70-105) mg/dL Calcium 8.3 L (8.6-10.3) mg/dL AST 13 (13-39) Units/L ALT 19 (7-52) Units/L Alkaline Phosphatase 44 (34-104) Units/L Albumin 3.8 (3.5-5.7) g/dL Calcium panel 03/07/18 Range/Units 05:43 Calcium 8.3 L (8.6-10.3) mg/dL Albumin 3.8 (3.5-5.7) g/dL Pituitary panel 03/07/18 Range/Units 05:43 Sodium 141 (136-145) mEq/L Potassium 3.9 (3.5-5.1) mEq/L Chloride 108 H (98-107) mEq/L Carbon Dioxide 25 (23-29) mEq/L BUN 17 (6-20) mg/dL Creatinine 0.93 (0.70-1.30) mg/dL Glucose 121 H (70-105) mg/dL Calcium 8.3 L (8.6-10.3) mg/dL Adrenal panel 03/07/18 Range/Units 05:43 Sodium 141 (136-145) mEq/L Potassium 3.9 (3.5-5.1) mEq/L Chloride 108 H (98-107) mEq/L Carbon Dioxide 25 (23-29) mEq/L BUN 17 (6-20) mg/dL Creatinine 0.93 (0.70-1.30) mg/dL Glucose 121 H (70-105) mg/dL Calcium 8.3 L (8.6-10.3) mg/dL Total Bilirubin 2.7 H (0.3-1.0) mg/dL AST 13 (13-39) Units/L ALT 19 (7-52) Units/L Alkaline Phosphatase 44 (34-104) Units/L Albumin 3.8 (3.5-5.7) g/dL - VTE Reasons for not Prescribing Prophylaxis: Treatment not Indicated - Low risk for VTE Documentation of Mechanical Device: Intermittent pneumatic compression device Consult Discharge Plan - Plan Referrals: Jona Denton MD [Primary Care Provider] - - Attending Attestation For this encounter, I have reviewed the [employer] or PA documentation, treatment plan, and medical decision making; and I have had face to face time with this patient. <Roddy Hummel - Last Filed: 03/07/18 13:43> Date of Encounter: 03/07/18 - Assessment and Plan (1) Small bowel obstruction Current Visit: Yes Status: Acute Objective Vital Signs - Last 8 Hours Temp Pulse Resp BP Pulse Ox 03/07/18 09:44 100.3 F H 96 18 138/77 96 03/07/18 07:10 98.4 F 71 18 121/74 96 Intake and Output 03/06/18 03/07/18 03/07/18 23:59 07:59 15:59 Intake Total 900 / 900 1000 / 1000 537 / 537 Output Total 350 / 350 650 / 650 Balance 550 / 550 350 / 350 537 / 537 Intake: IV Fluids 900 / 900 1000 / 1000 477 / 477 0.9 % Sodium Chloride 1,000 ML 900 / 900 1000 / 1000 467 / 467 @ 125 mls/hr IVC .Q8H [facility] Rx#: [id number] Rocephin 1,000 MG In Water for inj. (sterile) 10 ML @ 300 mls/ hr IVP DAILY [facility] Rx#:[id number] Oral 0 / 0 0 / 0 60 / 60 Output: Urine 0 / 0 400 / 400 Gastric Drainage 350 / 350 250 / 250 Other: Meal npo # Voids 1 Weight 89.2 kg Blood Glucose* 110 102 85 - Labs 03/07/18 05:43 03/07/18 05:43 Diabetes panel 03/07/18 Range/Units 05:43 Sodium 141 (136-145) mEq/L Potassium 3.9 (3.5-5.1) mEq/L Chloride 108 H (98-107) mEq/L Carbon Dioxide 25 (23-29) mEq/L BUN 17 (6-20) mg/dL Creatinine 0.93 (0.70-1.30) mg/dL Glucose 121 H (70-105) mg/dL Calcium 8.3 L (8.6-10.3) mg/dL AST 13 (13-39) Units/L ALT 19 (7-52) Units/L Alkaline Phosphatase 44 (34-104) Units/L Albumin 3.8 (3.5-5.7) g/dL Calcium panel 03/07/18 Range/Units 05:43 Calcium 8.3 L (8.6-10.3) mg/dL Albumin 3.8 (3.5-5.7) g/dL Pituitary panel 03/07/18 Range/Units 05:43 Sodium 141 (136-145) mEq/L Potassium 3.9 (3.5-5.1) mEq/L Chloride 108 H (98-107) mEq/L Carbon Dioxide 25 (23-29) mEq/L BUN 17 (6-20) mg/dL Creatinine 0.93 (0.70-1.30) mg/dL Glucose 121 H (70-105) mg/dL Calcium 8.3 L (8.6-10.3) mg/dL Adrenal panel 03/07/18 Range/Units 05:43 Sodium 141 (136-145) mEq/L Potassium 3.9 (3.5-5.1) mEq/L Chloride 108 H (98-107) mEq/L Carbon Dioxide 25 (23-29) mEq/L BUN 17 (6-20) mg/dL Creatinine 0.93 (0.70-1.30) mg/dL Glucose 121 H (70-105) mg/dL Calcium 8.3 L (8.6-10.3) mg/dL Total Bilirubin 2.7 H (0.3-1.0) mg/dL AST 13 (13-39) Units/L ALT 19 (7-52) Units/L Alkaline Phosphatase 44 (34-104) Units/L Albumin 3.8 (3.5-5.7) g/dL - Attending Attestation Review the above assessment and evaluation with the nurse practitioner and agree with the above plan. Patient continues to have some abdominal discomfort and distention. Positive terminal cramping pain. Abdominal x-rays shows that the foreign body appears to be in the same similar location as seen by CAT scan. I do think that he will require a exploration and resection of the small bowel/ileocecectomy to help relieve this area of obstruction. Risk and benefits discussed with the patient and he agrees to the above plan.
[2018-03-07] MEDS ORDERED: cefTRIAXone 1,000 MG in Water for inj. (sterile) 20 ML 10 ML IVP SCH (12:00)
--- NOTE | 2018-03-07 12:47 | Gastroenterology Consult Note ---
<Vinay Bui - Last Filed: 03/07/18 12:45> Date of Encounter: 03/07/18 Time of Encounter: 10:45 - Assessment and plan (1) Small bowel obstruction Current Visit: Yes Status: Acute Assessment and plan: Patient recently had a capsule endoscopy to investigate possible Crohn's disease. CT A/P shows moderately distended small bowel loops, a metallic camera can be seen in the distal ileum. NG tube was inserted. Abd XR this AM shows persistent small bowel obstruction. Plan for exploratory laparotomy and possible small bowel resection. Management per Surgical team. - Time Spent With Patient Total time spent is greater than 50% in coordination of care (as documented) at patient's floor/unit and/or counseling patient: GI History of Present Illness - Data of Consult Patient: known to practice within the last 3 years Consult date: 03/07/18 Requesting Physician: Aamir Badillo - Consult Narrative Reason for consult: SBO History of present illness: Mr. Joshi is a 53 year old male with PMHx of basal cell carcinoma of the forehead and possible diagnosis of Crohn's who presented to the ED acute onset of abdominal pain, nausea, vomiting that started the morning of admission. Patient recently had a capsule endoscopy to investigate possible Crohn's disease. Patient should have passed the pill but patient denies seeing the pill in his bowel movement. CT A/P shows moderately distended small bowel loops, a metallic camera can be seen in the distal ileum. NG tube was inserted. Abd XR this AM shows persistent small bowel obstruction. Plan for exploratory laparotomy for foreign body removal small bowel resection. Procedures: Capsule endoscopy 03/05/2018: EGD 09/26/2018 Dr. Clark: LA Grade A reflux esophagitis, Croft's esophagus ( no dysplasia), chronic gastritis. Colonoscopy 09/26/2018 Dr. Clark: Furrowed mucosa in the TI, internal hemorrhoids. NSAIDs: None Anticoagulation: None Past Med Surg Social Fam HX - Past Medical History Medical history: no medical history Psychiatric history: no psych history - Past Surgical History Surgical History: herniorrhaphy, vasectomy, other (Carpal tunnel, excision of forehead skin cancer) - Social History Smoking Status: Never smoker Smokeless Tobacco Status: No Alcohol use: occasionally Drug use: none - Gastrointestinal Gastrointestinal: Present: as per HPI - Constitutional Constitutional: as per HPI - EENT Eyes: as per HPI Ears: Present: as per HPI Nose, mouth and throat: Present: as per HPI - Cardiovascular Cardiovascular ROS: Present: as per HPI - Respiratory Respiratory IM: Present: as per HPI - Genitourinary Genitourinary: Absent: change in color, Urinary frequency - Neurological ROS Neurological GI: Present: as per HPI - Hematologic/Lymphatic Hematologic/Lymphatic pediatric: Present: as per HPI - Musculoskeletal Musculoskeletal ROS GI: Present: as per HPI - Integumentary Integumentary GI: Present: as per HPI - Psychiatric ROS Psychiatric GI: Present: as per HPI - Endocrine Endocrine IM: Present: as per HPI - Constitutional Vitals: Temp Pulse Resp BP Pulse Ox 100.3 F H 96 18 138/77 96 03/07/18 09:44 03/07/18 09:44 03/07/18 09:44 03/07/18 09:44 03/07/18 09:44 General appearance: Present: cooperative, A&O X 3, no acute distress, answers questions appropriately - Head Head exam: Present: atraumatic, normocephalic - Eye Eye exam: Present: normal appearance, sclera anicteric - ENT ENT exam: Present: mucous membranes dry Additional comments: NG tube in place. - Neck Neck exam general surgery: Present: normal inspection, trachea midline - Respiratory Respiratory exam: Present: CTAB. Absent: rales, rhonchi - Cardiovascular Cardiovascular exam: Present: RRR, +S1, +S2 - GI/Abdominal GI/Abdominal exam: Present: soft, tenderness (generalized), no peritoneal signs. Absent: distended, firm, guarding Additional comments: NG tube in place. - Rectal Rectal exam: Present: deferred - Extremities Exam Extremities exam: Present: warm - Neurological Exam Neurological exam: Present: no focal deficits - Psychiatric Psychiatric exam: Present: normal affect, normal mood - Skin Skin exam: Present: dry, intact, normal color, warm Results - Labs CBC & Chem 7: 03/07/18 05:43 03/07/18 05:43 Labs: Last Result Calcium 8.3 mg/dL (8.6-10.3) L 03/07/18 05:43 Entire Visit Hgb 16.1 g/dL (12.9-16.9) 03/07/18 05:43 Hct 49.9 % (37.5-50.1) 03/07/18 05:43 Total Bilirubin 2.7 mg/dL (0.3-1.0) H 03/07/18 05:43 AST 13 Units/L (13-39) 03/07/18 05:43 ALT 19 Units/L (7-52) 03/07/18 05:43 Lipase 16 Units/L (11-82) 03/06/18 14:14 - Impressions Impressions KUB X-Ray 03/06/18 22:55 IMPRESSION: The enteric tube is in good position in the stomach. D/ / Darwin Christina MD / Darwin Christina MD Interpreting Provider: Darwin Christina MD Abdomen X-Ray 03/07/18 05:00 IMPRESSION: Persistent small bowel obstruction. D/ / Darwin Christina MD / Darwin Christina MD Interpreting Provider: Darwin Christina MD Consult Discharge Plan - Plan Referrals: Jona Denton MD [Primary Care Provider] - <Eamon Clark - Last Filed: 03/12/18 06:10> Date of Encounter: 03/07/18 - Time Spent With Patient Total time spent is greater than 50% in coordination of care (as documented) at patient's floor/unit and/or counseling patient: GI History of Present Illness - Data of Consult Requesting Physician: Aamir Badillo - Consult Narrative History of present illness: Mr. Joshi is a 53 year old male - Constitutional Vitals: Temp Pulse Resp BP Pulse Ox 98.5 F 66 15 121/78 98 03/12/18 03:00 03/12/18 03:00 03/12/18 03:00 03/12/18 03:00 03/12/18 03:00 Results - Labs CBC & Chem 7: 03/12/18 05:18 03/12/18 05:18 Labs: Last Result Calcium 8.1 mg/dL (8.6-10.3) L 03/12/18 05:18 Entire Visit Hgb 13.9 g/dL (12.9-16.9) 03/12/18 05:18 Hct 41.5 % (37.5-50.1) 03/12/18 05:18 Total Bilirubin 0.8 mg/dL (0.3-1.0) 03/11/18 05:22 AST 12 Units/L (13-39) L 03/11/18 05:22 ALT 17 Units/L (7-52) 03/11/18 05:22 Lipase 16 Units/L (11-82) 03/06/18 14:14 - Impressions Impressions KUB X-Ray 03/11/18 09:09 IMPRESSION: Nasogastric tube in unchanged position. No dilated bowel. Pill camera has advanced to the level of the right lower quadrant surgical anastomosis. D/ / 03/11/2018 11:46:19 Vladimir Capps MD / [facility] Interpreting Provider: Vladimir Capps MD - Attending Attestation Patient presents with SBO secondary to capsule in terminal ileum. Patient appears to have a very tight stricture. Hopefully it will pass. If not will need to have involved terminal ileum and adjacent cecum resected at the time of laparoscopy/laparotomy I have personally performed a face to face evaluation on this patient. I have reviewed and agree with the care plan. History and Exam by me shows:
--- NOTE | 2018-03-07 13:46 | Anesthesia Evaluation PreOp ---
Date of Encounter: 03/07/18 Time of Encounter: 13:45 - Past History Planned Operation: Exp. Lap. small bowel resection Cardiac History: Denies any Significant Hx Pulmonary History: Denies Any Significant HX WAVE SOLDER OFFBEARER History: Denies Any Significant HX Other Medical History: Other (Diarrhea, SBO) Anesthesia History: No Prior Anesthetic Complications, Past Anesthesia (EGD/ Colonoscopy, vasecromy, CTR) Alcohol Use: occasionally Drug use: none Medications and Allergies Cetirizine HCl [All Day Allergy] 10 mg PO DAILY 03/06/18 [History] 3 Allergy/AdvReac Type Severity Reaction Status Date / Time No Known Allergies Allergy Verified 03/06/18 15:38 - Meds/Allergy Pre-op Review Medications Reviewed: Yes Allergies Reviewed: Yes Beta Blockers on Current Med List: No Anesthesia Results - Labs 03/07/18 05:43 03/07/18 05:43 Anesthesia Exam Vital Signs/O2 Sat, Most Current Temp Pulse Resp BP Pulse Ox 100.3 F H 96 18 138/77 96 03/07/18 09:44 03/07/18 09:44 03/07/18 09:44 03/07/18 09:44 03/07/18 09:44 NPO (# of Hours): > 8 hrs Pain Scale: 0 Pain Scale Used: Numeric (1 - 10) - HEENT Pupil (Motor): Pupils equal, EOMI Mallampati: III Teeth: Poor dentition Oral Opening: Greater than 3 - WAVE SOLDER OFFBEARER LOC: Oriented WAVE SOLDER OFFBEARER Motor: Normal RUE, Normal LUE, Normal RLE, Normal LLE, Normal Face WAVE SOLDER OFFBEARER Sensory: Normal: RUE, LUE, RLE, LLE, Face - Cardiac Rhythm: Regular Murmur: None JVD: No Carotid Bruit: No - Pulmonary Breath Sounds: bilateral Clear Respiratory Effort: Symmetrical Anesthesia Assess/Plan ASA Score: 2 Modified Byron Scale for Level of Consciousness: Cooperative, oriented, and tranquil Anesthetic Plan: General Autologous Blood: Yes Monitoring Plan: Standard Monitors Recovery Plan: PACU
--- NOTE | 2018-03-07 14:30 | Internal Med Progress Note ---
<ValerieflexBhaskar chaudhary - Last Filed: 03/07/18 14:27> Date of Encounter: 03/07/18 Time of Encounter: 10:17 - Assessment and plan (1) Abdominal pain Current Visit: Yes Status: Acute Assessment and plan: - Likely secondary to SBO as demonstrated on serial Xrays. - Reports not passing his follow through capsule - GI consulted, deferring to general surgery - Pain and nausea well controlled. - Continue NG tube on intermittent suction Plan - General surgery consulted, plan for exploratory laparotomy with possible small bowel resection if needed - Sympomatic control. Qualifiers: Abdominal location: generalized Qualified Code(s): R10.84 - Generalized abdominal pain (2) Nausea and vomiting Current Visit: Yes Status: Acute Assessment and plan: Likely secondary to SBO. Anti-emetics as per above with NG tube. Qualifiers: Vomiting type: unspecified Vomiting Intractability: non-intractable Qualified Code(s): R11.2 - Nausea with vomiting, unspecified (3) Small bowel obstruction Current Visit: Yes Status: Acute Assessment and plan: - Likely secondary to camera capsule being stuck in distal ileum, as evidenced by thickened distal ileum on CT abdomen/pelvis. - Patient is pain-free and nausea-free at this time. - GI and surgery consulted; appreciate input. - Make NPO. NG tube - Start IV NS at 125 ml/hr. Start zofran 4 mg IV Q6H PRN nausea/vomiting. Start phenergan 12.5 mg IM Q6H PRN for nausea/vomiting not relieved by zofran. - Start SL oxycodone and IV fentanyl PRN for pain control. - Surgery as above (4) Leukocytosis Current Visit: Yes Status: Resolved Assessment and plan: WBC of 6.0, improved from 14 - Likely secondary to N/V. - Antiemetics as per above. - Repeat CBC in AM. Qualifiers: Leukocytosis type: unspecified Qualified Code(s): D72.829 - Elevated white blood cell count, unspecified (5) DVT prophylaxis Current Visit: Yes Status: Acute Assessment and plan: Low risk. Start SCDs. - Consider pharmacological anticoagulation pending surgery intervention - Time Spent With Patient Total time spent is greater than 50% in coordination of care (as documented) at patient's floor/unit and/or counseling patient: 25 - 35 minutes - Subjective Interval history: Patient seen and examined the patient since morning. He states overall he is feeling well with no complaints of abdominal pain, nausea, vomiting. States that he is still experiencing some abdominal distention and has been unable to have a bowel movement. States that symptomatic pain and nausea control have been adequate. Per general surgery, scheduled for exploratory laparotomy this afternoon. All questions were answered. - Constitutional Vitals: Temp Pulse Resp BP Pulse Ox 100.3 F H 96 18 138/77 96 03/07/18 09:44 03/07/18 09:44 03/07/18 09:44 03/07/18 09:44 03/07/18 09:44 General appearance: Present: cooperative, A&O X 3, pleasant, no acute distress, obese, answers questions appropriately Exam: Gen.: Vitals noted. No acute distress. AAOx3 HEENT: PERRL/EOMI, oropharynx clear, Normocephalic, atraumatic, MMM. NG tube in place with dark green contents Cardiac: RRR, no murmur, +S1/S2 Pulmonary: CTA bilaterally, no wheezes, rales or rhonchi, equal chest expansion Abdomen: soft, mildly tender most prominent in RLQ, BS noted and prominent, no guarding. Distended MSK: ROM intact, no joint swelling noted Extremities: no BLE edema, nontender calf, no cyanosis or clubbing Neuro: A&Ox3, moves all extremities, no focal deficits Psych: Appropriate mood and behavior Internal Medicine: Result - Labs CBC & Chem 7: 03/07/18 05:43 03/07/18 05:43 Labs: Short CBC 03/07/18 Range/Units 05:43 WBC 6.3 D (4.3-11.1) K/mcL Hgb 16.1 (12.9-16.9) g/dL Hct 49.9 (37.5-50.1) % Plt Count 155 (140-400) K/mcL Neutrophils # 5.1 (1.6-8.9) K/mcL BMP 03/07/18 05:43 Sodium 141 Potassium 3.9 Chloride 108 H Carbon Dioxide 25 BUN 17 Creatinine 0.93 Glucose 121 H Calcium 8.3 L Liver Function 03/07/18 Range/Units 05:43 Total Bilirubin 2.7 H (0.3-1.0) mg/dL AST 13 (13-39) Units/L ALT 19 (7-52) Units/L Alkaline Phosphatase 44 (34-104) Units/L Albumin 3.8 (3.5-5.7) g/dL - Impressions Impressions KUB X-Ray 03/06/18 22:55 IMPRESSION: The enteric tube is in good position in the stomach. D/ / Darwin Christina MD / Darwin Christina MD Interpreting Provider: Darwin Christina MD Abdomen X-Ray 03/07/18 05:00 IMPRESSION: Persistent small bowel obstruction. D/ / Darwin Christina MD / Darwin Christina MD Interpreting Provider: Darwin Christina MD - VTE Reasons for not Prescribing Prophylaxis: Treatment not Indicated - Low risk for VTE Documentation of Mechanical Device: Intermittent pneumatic compression device Consult Discharge Plan - Plan Referrals: Jona Denton MD [Primary Care Provider] - <Kate Monge - Last Filed: 03/07/18 17:08> Date of Encounter: 03/07/18 - Assessment and plan (1) Abdominal pain Current Visit: Yes Status: Acute Qualifiers: Abdominal location: generalized Qualified Code(s): R10.84 - Generalized abdominal pain (2) Nausea and vomiting Current Visit: Yes Status: Acute Qualifiers: Vomiting type: unspecified Vomiting Intractability: non-intractable Qualified Code(s): R11.2 - Nausea with vomiting, unspecified (3) Small bowel obstruction Current Visit: Yes Status: Acute (4) Leukocytosis Current Visit: Yes Status: Resolved Qualifiers: Leukocytosis type: unspecified Qualified Code(s): D72.829 - Elevated white blood cell count, unspecified (5) DVT prophylaxis Current Visit: Yes Status: Acute - Time Spent With Patient Total time spent is greater than 50% in coordination of care (as documented) at patient's floor/unit and/or counseling patient: - Constitutional Vitals: Temp Pulse Resp BP Pulse Ox 100.3 F H 96 18 138/77 96 03/07/18 09:44 03/07/18 09:44 03/07/18 09:44 03/07/18 09:44 03/07/18 09:44 Internal Medicine: Result - Labs CBC & Chem 7: 03/07/18 05:43 03/07/18 05:43 Labs: Short CBC 03/07/18 Range/Units 05:43 WBC 6.3 D (4.3-11.1) K/mcL Hgb 16.1 (12.9-16.9) g/dL Hct 49.9 (37.5-50.1) % Plt Count 155 (140-400) K/mcL Neutrophils # 5.1 (1.6-8.9) K/mcL BMP 03/07/18 05:43 Sodium 141 Potassium 3.9 Chloride 108 H Carbon Dioxide 25 BUN 17 Creatinine 0.93 Glucose 121 H Calcium 8.3 L Liver Function 03/07/18 Range/Units 05:43 Total Bilirubin 2.7 H (0.3-1.0) mg/dL AST 13 (13-39) Units/L ALT 19 (7-52) Units/L Alkaline Phosphatase 44 (34-104) Units/L Albumin 3.8 (3.5-5.7) g/dL - Impressions Impressions KUB X-Ray 03/06/18 22:55 IMPRESSION: The enteric tube is in good position in the stomach. D/ / Darwin Christina MD / Darwin Christina MD Interpreting Provider: Darwin Christina MD Abdomen X-Ray 03/07/18 05:00 IMPRESSION: Persistent small bowel obstruction. D/ / Darwin Christina MD / Darwin Christina MD Interpreting Provider: Darwin Christina MD - Attending Attestation I examined this patient and my medical decision-making was reviewed with the Resident Physician Dr. Romero. I agree with the documented findings, disposition and treatment plan as described except to the extent set forth below. Mr. Joshi is a 53 year old male who recently diagnosed with crohn's disease presented to ED with acute onset of abdominal pain, nausea, vomiting. Pt does have significant SBO. NG tube placed in, he still have nausea / vomiting Gen: Moderate distress Chest: CTA Heart: S1S2+ Sinus tachy Abd; Soft, distended, BS decreased Tenderness ++ a/p 1. Sepsis - He does meet sepsis criteria with low grade temp, elevated WBC, tachycardia and source of inf intra abdominal 2. Acute SBO 3. Acute colitis vs Crohn's flare up NPO GI and Surgery on board started on empirical abx Rocephin + Flagyl Scheduled for surgery later today
[2018-03-07] MEDS ORDERED: Ondansetron 4 MG/2 ML VIAL ONE (14:37)
[2018-03-07] MEDS ORDERED: Lidocaine -MPF 2% 2 ML VIAL ONE (14:37)
[2018-03-07] MEDS ORDERED: *HR* Rocuronium Bromide 50 MG/5 ML VIAL ONE (14:37)
[2018-03-07] MEDS ORDERED: Dexamethasone 4 MG/ML VIAL ONE (14:37)
[2018-03-07] MEDS ORDERED: Ketorolac 30 MG/ML VIAL ONE (14:37)
[2018-03-07] MEDS ORDERED: *HR* Propofol 200 MG/20 ML VIAL IVP ONE (14:38)
[2018-03-07] MEDS ORDERED: *HR* Midazolam HCl 2 MG/2 ML VIAL ONE (14:38)
[2018-03-07] MEDS ORDERED: *HR* FentaNYL (PF) 100 MCG/2 ML VIAL ONE ×2 (14:38→15:34)
[2018-03-07] MEDS ORDERED: CefOXitin 1,000 MG VIAL ONE ×2 (14:41→16:39)
--- NOTE | 2018-03-07 15:28 | Electrocardiograph Report ---
[place] [id number] Test Date: 2018-03-06 Pat Name: Aroldo Joshi Department: 104 Room: 3A Gender: M Animal Care Attendant: : 1965 Requested By: Ben Bae Order Number: [id number] Reading MD: Ksenia Poole Measurements Intervals [place] Rate: 68 P: 19 MN: 154 QRS: -12 QRSD: 92 T: 5 QT: 391 QTc: 408 Interpretive Statements SINUS RHYTHM POSSIBLE LEFT ATRIAL ENLARGEMENT [-0.1mV P WAVE IN V1/V2] Electronically Signed On 03-07-2018 15:27:02 EDT by Ksenia Poole
[2018-03-07] MEDS ORDERED: Lidocaine -MPF 4% 5 ML AMPUL ONE (15:34)
[2018-03-07] MEDS ORDERED: *HR* PHENYLEPHRINE 1,000 MCG/10 ML SYRINGE IVP ONE (15:34)
[2018-03-07] MEDS ORDERED: *HR* Promethazine 25 MG/ML VIAL IVP PRN (16:30)
[2018-03-07] MEDS ORDERED: *HR* FentaNYL (PF) 100 MCG/2 ML VIAL IVP PRN (16:30)
[2018-03-07] MEDS ORDERED: *HR* HYDROmorphone (PF) 1 MG/ML SYRINGE IVP PRN (16:30)
[2018-03-07] MEDS ORDERED: *HR* Morphine 10 MG/ML VIAL ONE (16:46)
--- NOTE | 2018-03-07 17:10 | Operative Note ---
Date of procedure: 03/07/18 Pre-op diagnosis: Small bowel obstruction Post-op diagnosis: same Procedure: 1. Exploratory celiotomy. 2. Ileocectomy with anastamosis. Anesthesia: GETA Surgeon: Roddy Hummel Was there an application assistant present: Yes Tool Room Machinist: Krzysztof Mendoza Estimated blood loss (cc): 60 Specimen: omentum, ileum/cecum Condition: stable Disposition: PACU Procedure in Detail: Date of surgery: 03/07/18 After properly identifying the patient, the patient was brought to the operating room and placed in supine position. After proper IV sedation was achieved followed by general endotracheal intubation, the patient's abdomen was prepped and draped in normal sterile fashion. A timeout was performed noting the patient's name and type of procedure to be performed. A 10 blade scalpel was used to make an incision several centimeters above the level of the umbilicus is extending downward to just above the pubic symphysis. Dissection was carried through the subcutaneous tissue to the rectus fascia which was opened along the course of the incision. A wound protector was brought on the field to protect the subcutaneous tissue and a Bookwalter was also brought onto the operative field to help retract the fascia laterally. Visualization and palpation demonstrated thickening of the terminal ileum. First the distal ileum was extruded through the incision and Bovie cauterization was used to take down the sidewall attachments to this area. Ileum was noted to be very thickened and the mesentery also was very significant concerning for inflammatory bowel disease. Portions of the omentum or in the field and transected with a handheld LigaSure. Further dissection of the terminal ileum and the right colonic sidewall attachments up to the hepatic flexure was performed with a combination Bovie cauterization and usage of the handheld LigaSure. The before meals; was immediately retracted to allow for better visualization and this decision was made to go ahead and transect across the distal ileum at the level of mildly dilated bowel proximal to the area of thickening. This was performed with a [place] stapler. The mesentery was then transected with a handheld LigaSure and hemostasis was controlled with accommodation Bovie cauterization and usage of the handheld LigaSure. The right colon was also transected with a [place] stapler and the intervening segment was then removed from the operative field. On a separate table the bowel specimen was opened which did not show evidence of the capsule but did show a very thickened and stenotic lumen up towards the cecum which was consistent with possible rheumatoid bowel disease. Gloves were exchanged and a [id number] anastomosis was created with a GI a stapler. The intervening enterotomy was closed with a TA stapler. The abdomen was irrigated with normal saline solution containing Mefoxin and reinspection of the staple line showed no evidence of bleeding. The omentum was used to partially cover the staple line and the decision was made to go ahead and complete the surgical procedure. Of note the capsule was noted to still be within small bowel but because of the long anastomosis there was no concern about possible bowel obstruction with the capsule still in place i.e. the capsule would definitely be eliminated once the patient's bowel function returned. A Seprafilm was placed within the abdomen and the abdominal wall fascia was reapproximated with 1 looped PDS sutures. The subcutaneous tissue was reapproximated with interrupted 2-0 Vicryl sutures and the epidermal and dermal layers were reapproximated with rebecca. Needle, sponge, and instrument counts were correct 2 and the incision was covered with 4 x 4's. The patient was aroused from IV sedation, extubated in the operating room without complication, and transported to the recovery room stable condition.
--- NOTE | 2018-03-07 17:42 | Anesthesia Evaluation Post Op ---
Date of Encounter: 03/07/18 Time of Encounter: 17:41 - Vital Signs Vital Signs: Vital Signs/O2 Sat, Most Current Temp Pulse Resp BP Pulse Ox 99.7 F H 93 16 117/79 97 03/07/18 17:16 03/07/18 17:36 03/07/18 17:36 03/07/18 17:36 03/07/18 17:36 - Lungs Lungs: Clear Ascult./Percussion - Airway Airway: Non-obstructed - Cardiovascular Regular Rate - Mental Status Mental Status: Alert & Oriented, Answers Appropriately - Pain Pain Scale: 8 (sleeping) Pain Scale used: Numeric (1 - 10) - Nausea Vomiting Nausea Vomiting: Not Present - Hydration Hydration: NPO, Has not voided - Discharge PostOp Status: Transfer Patient to floor
[2018-03-07] MEDS ORDERED: MetroNIDAZOLE 500 MG/100 ML 500 MG/100 ML BAG IVPB SCH (18:00)
[2018-03-07] MEDS ORDERED: OXYCODONE Oral CONC 10 MG/0.5 ML ORAL.SYG SL PRN ×2 (18:16)
[2018-03-07] MEDS ORDERED: Naloxone 0.4 MG/ML INJ IVP PRN ×2 (18:16)
[2018-03-07] MEDS ORDERED: *HR* FentaNYL PATCH 75 MCG PATCH TD SCH (18:16)
[2018-03-07] MEDS ORDERED: Ondansetron 4 MG/2 ML VIAL IVP PRN (18:16)
[2018-03-07] MEDS: Ketorolac 30 MG/ML VIAL IM SCH (18:33)
[2018-03-08] MEDS: Ketorolac 30 MG/ML VIAL IM SCH ×4 (00:13→16:53)
[2018-03-08] MEDS: MetroNIDAZOLE 500 MG/100 ML 500 MG/100 ML BAG IVPB SCH ×3 (00:17→15:49)
[2018-03-08 06:10] LABS: BUN/Creatinine Ratio 19 (6-26); Blood Urea Nitrogen 19 mg/dL (6-20); Calcium 7.5 mg/dL (8.6-10.3); Carbon Dioxide 29 mEq/L (23-29); Chloride 109 mEq/L (98-107); Glucose 113 mg/dL (70-105); Osmolality,Calculated 301 (280-300); Potassium 4.2 mEq/L (3.5-5.1); Sodium 144 mEq/L (136-145); eGFR For African Americans > 60 (> 60); eGFR For Non-African Americans > 60 (> 60)
[2018-03-08 06:28] LABS: Hematocrit 43.4 % (37.5-50.1); Mean Corpuscular HGB Conc 31.3 g/dL (31.6-35.5); Mean Corpuscular Hemoglobin 30.2 pg (28.0-33.3); Mean Corpuscular Volume 96.2 fL (83.0-100.0); Mean Platelet Volume 9.7 fL (9.4-12.4); Platelet Count 102 K/mcL (140-400); Red Blood Count 4.51 M/mcL (4.19-5.50); Red Cell Distribution Width 13.9 % (11.5-14.5)
[2018-03-08 06:52] LABS: Hemoglobin 13.6 g/dL (12.9-16.9)
[2018-03-08] MEDS: 0.9 % Sodium Chloride 1,000 ML IVC SCH (06:59)
[2018-03-08 07:22] LABS: Lymphocytes # 0.9 K/mcL (0.6-4.6); Monocytes # 0.5 K/mcL (0.0-1.3); Neutrophils # 4.3 K/mcL (1.6-8.9)
[2018-03-08 07:23] LABS: Platelet Estimate Slight Decrease (Normal)
[2018-03-08] MEDS: cefTRIAXone 1,000 MG in Water for inj. (sterile) 20 ML 10 ML IVP SCH (08:53)
--- NOTE | 2018-03-08 09:48 | General Surgery Progress Note ---
<Alonso Cruz - Last Filed: 03/08/18 16:13> Date of Encounter: 03/08/18 Time of Encounter: 09:45 - Assessment and Plan (1) Small bowel obstruction Current Visit: Yes Status: Acute POD #1 s/p Exploratory celiotomy, Ileocectomy with anastamosis. Pt tolerated procedure well NPO NG tube to LIWS Supportive Care and pain control PPI therapy daily IS Q1H while awake continue abx per primary team (2) DVT prophylaxis Current Visit: Yes Status: Acute continue Heparin 5,000 SQ Q12H Subjective Patient reports: no new complaints, voiding w/o difficulty, no flatus, no bowel movement, afebrile Narrative: POd #1 s/p exploratory celiotomy and ilectomy c anastamosis. Patient tolerated the procedure well. Pain is well contorlled. He deneis N, V, D, F, chills, chest pain, SOB. Objective Vital Signs - Last 8 Hours Temp Pulse Resp BP Pulse Ox 03/08/18 08:47 98.6 F 75 15 110/70 99 03/08/18 03:54 97.8 F 71 16 107/70 98 Intake and Output 03/07/18 03/08/18 03/08/18 23:59 07:59 15:59 Intake Total 1100 / 1100 0 / 0 Output Total 435 / 435 550 / 550 Balance -435 / -435 1100 / 1100 -550 / -550 Intake: IV Fluids 1100 / 1100 0.9 % Sodium Chloride 1,000 ML 1000 / 1000 @ 90 mls/hr IVC .Q11H7M DOC Rx# :[id number] Flagyl Premix 500 MG/100 ML 500 100 / 100 mg In 100 ml @ 100 mls/hr IVPB Q8HR DOC Rx#:[id number] Oral 0 / 0 Output: Urine 250 / 250 300 / 300 Estimated Blood Loss 60 / 60 Gastric Drainage 125 / 125 250 / 250 Other: Weight 93.3 kg Blood Glucose* 101 96 Patient Weight 03/08/18 23:59 Weight 93.3 kg - General physical appearance well developed, well nourished, no distress - Eyes normal ocular movement - ENT normal nares, normal mucosa - Neck Neck exam: trachea midline - Respiratory normal expansion, normal respiratory effort, clear to auscultation - Cardiovascular Cardiovascular exam: Present: RRR, no murmurs/rubs/gallops - Abdomen Abdomen: Present: bowel sounds present, soft, tender (mild incisional) - Integumentary no abnormal pigmentation - Neurologic CN 2-12 grossly intact - Musculoskeletal normal posture - Psychiatric oriented to time, oriented to person, oriented to place, speech is normal, memory intact - Labs 03/08/18 05:23 03/08/18 05:23 Diabetes panel 03/08/18 Range/Units 05:23 Sodium 144 (136-145) mEq/L Potassium 4.2 (3.5-5.1) mEq/L Chloride 109 H (98-107) mEq/L Carbon Dioxide 29 (23-29) mEq/L BUN 19 (6-20) mg/dL Creatinine 0.99 (0.70-1.30) mg/dL Glucose 113 H (70-105) mg/dL Calcium 7.5 L (8.6-10.3) mg/dL Calcium panel 03/08/18 Range/Units 05:23 Calcium 7.5 L (8.6-10.3) mg/dL Pituitary panel 03/08/18 Range/Units 05:23 Sodium 144 (136-145) mEq/L Potassium 4.2 (3.5-5.1) mEq/L Chloride 109 H (98-107) mEq/L Carbon Dioxide 29 (23-29) mEq/L BUN 19 (6-20) mg/dL Creatinine 0.99 (0.70-1.30) mg/dL Glucose 113 H (70-105) mg/dL Calcium 7.5 L (8.6-10.3) mg/dL Adrenal panel 03/08/18 Range/Units 05:23 Sodium 144 (136-145) mEq/L Potassium 4.2 (3.5-5.1) mEq/L Chloride 109 H (98-107) mEq/L Carbon Dioxide 29 (23-29) mEq/L BUN 19 (6-20) mg/dL Creatinine 0.99 (0.70-1.30) mg/dL Glucose 113 H (70-105) mg/dL Calcium 7.5 L (8.6-10.3) mg/dL - VTE Reasons for not Prescribing Prophylaxis: Treatment not Indicated - Low risk for VTE Documentation of Mechanical Device: Intermittent pneumatic compression device Consult Discharge Plan - Plan Referrals: Jona Denton MD [Primary Care Provider] - <Donovan Patterson Sepideh - Last Filed: 03/08/18 22:37> Date of Encounter: 03/08/18 Objective Vital Signs - Last 8 Hours Temp Pulse Resp BP Pulse Ox 03/08/18 19:08 98.7 F 62 17 124/75 99 03/08/18 15:56 98 F 65 16 108/65 98 Intake and Output 03/08/18 03/08/18 03/08/18 07:59 15:59 23:59 Intake Total 1100 / 1100 100 / 100 Output Total 1150 / 1150 50 / 50 Balance 1100 / 1100 -1050 / -1050 -50 / -50 Intake: IV Fluids 1100 / 1100 100 / 100 0.9 % Sodium Chloride 1,000 ML 1000 / 1000 @ 90 mls/hr IVC .Q11H7M DOC Rx# :[id number] Flagyl Premix 500 MG/100 ML 500 100 / 100 100 / 100 mg In 100 ml @ 100 mls/hr IVPB Q8HR DOC Rx#:[id number] Oral 0 / 0 Output: Urine 500 / 500 50 / 50 Gastric Drainage 650 / 650 Other: Meal NPO # Voids 1 Weight 93.3 kg Blood Glucose* 96 86 86 Patient Weight 03/08/18 23:59 Weight 93.3 kg - Labs 03/08/18 05:23 03/08/18 05:23 Diabetes panel 03/08/18 Range/Units 05:23 Sodium 144 (136-145) mEq/L Potassium 4.2 (3.5-5.1) mEq/L Chloride 109 H (98-107) mEq/L Carbon Dioxide 29 (23-29) mEq/L BUN 19 (6-20) mg/dL Creatinine 0.99 (0.70-1.30) mg/dL Glucose 113 H (70-105) mg/dL Calcium 7.5 L (8.6-10.3) mg/dL Calcium panel 03/08/18 Range/Units 05:23 Calcium 7.5 L (8.6-10.3) mg/dL Pituitary panel 03/08/18 Range/Units 05:23 Sodium 144 (136-145) mEq/L Potassium 4.2 (3.5-5.1) mEq/L Chloride 109 H (98-107) mEq/L Carbon Dioxide 29 (23-29) mEq/L BUN 19 (6-20) mg/dL Creatinine 0.99 (0.70-1.30) mg/dL Glucose 113 H (70-105) mg/dL Calcium 7.5 L (8.6-10.3) mg/dL Adrenal panel 03/08/18 Range/Units 05:23 Sodium 144 (136-145) mEq/L Potassium 4.2 (3.5-5.1) mEq/L Chloride 109 H (98-107) mEq/L Carbon Dioxide 29 (23-29) mEq/L BUN 19 (6-20) mg/dL Creatinine 0.99 (0.70-1.30) mg/dL Glucose 113 H (70-105) mg/dL Calcium 7.5 L (8.6-10.3) mg/dL - Attending Attestation Patient seen and examined; I have reviewed all vials, labs, and notes, including this one. I agree with the above assessment and plan and wish to add the following... cont IV pain control IVF SQH cont NG tube; replete lytes ambualte/OOBTC keep NPO await return of bowel function
--- NOTE | 2018-03-08 11:35 | Gastroenterology Progress Note ---
Date of Encounter: 03/08/18 Time of Encounter: 10:00 - Time Spent With Patient Total time spent is greater than 50% in coordination of care (as documented) at patient's floor/unit and/or counseling patient: 25 - 35 minutes - Subjective Interval history: Mr. Abernathy is a pleasant 53-year-old white male who presented to the emergency room complaining of persistent diffuse abdominal pain and cramping and was noted to have a small bowel obstruction and also noted on the CT scan was of the metallic come and video capsule in so that there appeared to belocated somewhere in in the distal terminal ileum. Was admitted initially went for out for adjusted for observation to see if the REMOTE past. Had ovarian and he however had a narrow. Narrow segment and the procedure which is the area where his Crohn's is active. He had a nasogastric tube placed and unfortunately repeat x-rays and MRI yesterday morning showed no progression of the capsule patient's continued to have symptoms and his brother decided to proceed with either laparoscopic or exploratory laparotomy. Spoke with Dr. Hummel and and the patient underwent a successful resection of his terminal ileum the narrowed segment as well as removal of adjacent cecum. Yesterday. Patient in good spirits today his daughter was present at the bedside and we reviewed a detailed discussion on the colon was to be expected as well as the future of his of his care. We discussed dietary modifications and dietary lifestyle changes. I answered all his questions Plan is to continue the nasogastric tube suction and ambulate the patient for now Diagnosis #1 status post exploratory laparotomy with resection of the ileum and and cecum. Ileocecal Crohn's disease with a terminal with terminal ileal stricture status post resection - Constitutional Vitals: Temp Pulse Resp BP Pulse Ox 98.6 F 75 15 110/70 99 03/08/18 08:47 03/08/18 08:47 03/08/18 08:47 03/08/18 08:47 03/08/18 08:47 General appearance: Present: cooperative, A&O X 3, no acute distress, answers questions appropriately - GI/Abdominal GI/Abdominal exam: Present: hypoactive bowel sounds, soft, no peritoneal signs Results - Labs CBC & Chem 7: 03/08/18 05:23 03/08/18 05:23 Labs: Last Result Calcium 7.5 mg/dL (8.6-10.3) L 03/08/18 05:23 Entire Visit Hgb 13.6 g/dL (12.9-16.9) D 03/08/18 05:23 Hct 43.4 % (37.5-50.1) 03/08/18 05:23 Total Bilirubin 2.7 mg/dL (0.3-1.0) H 03/07/18 05:43 AST 13 Units/L (13-39) 03/07/18 05:43 ALT 19 Units/L (7-52) 03/07/18 05:43 Lipase 16 Units/L (11-82) 03/06/18 14:14 - VTE Reasons for not Prescribing Prophylaxis: Treatment not Indicated - Low risk for VTE Documentation of Mechanical Device: Intermittent pneumatic compression device Consult Discharge Plan - Plan Referrals: Jona Denton MD [Primary Care Provider] -
--- NOTE | 2018-03-08 12:20 | Internal Med Progress Note ---
Date of Encounter: 03/08/18 Time of Encounter: 12:18 - Assessment and plan (1) Small bowel obstruction Current Visit: Yes Status: Acute Assessment and plan: s/p Exploratory celiotomy and Ileocectomy with anastamosis POD # 1 cont IV hydration NPO Cont empirical abx Cont post op care as per surgery recommendation (2) Abdominal pain Current Visit: Yes Status: Acute Assessment and plan: Acute SBO with ?? Colitis cont empirical abx Qualifiers: Abdominal location: generalized Qualified Code(s): R10.84 - Generalized abdominal pain (3) Nausea and vomiting Current Visit: Yes Status: Acute Assessment and plan: cont anti emetics Qualifiers: Vomiting type: unspecified Vomiting Intractability: non-intractable Qualified Code(s): R11.2 - Nausea with vomiting, unspecified (4) DVT prophylaxis Current Visit: Yes Status: Acute Assessment and plan: Low risk. Start SCDs. - Time Spent With Patient Total time spent is greater than 50% in coordination of care (as documented) at patient's floor/unit and/or counseling patient: - Subjective Interval history: Mr. Joshi is a 53 year old male who recently diagnosed with crohn's disease presented to ED with acute onset of abdominal pain, nausea, vomiting. Pt was admitted here for SBO and went for Exploratory celiotomy and Ileocectomy with anastamosis on 03/07/18. Pt still has significant amount of secretions through NG tube. Abdominal pain is well controlled with current meds - Constitutional Vitals: Temp Pulse Resp BP Pulse Ox 98.6 F 75 15 110/70 99 03/08/18 08:47 03/08/18 08:47 03/08/18 08:47 03/08/18 08:47 03/08/18 08:47 General appearance: Present: cooperative, A&O X 3, pleasant, no acute distress, obese, answers questions appropriately - Head Head exam: Present: atraumatic, normal inspection - Neck Neck exam general surgery: Present: supple - Respiratory Respiratory exam: Present: decreased breath sounds. Absent: rales, respiratory distress, rhonchi, wheezes - Cardiovascular Cardiovascular exam: Present: +S1, +S2 - GI/Abdominal GI/Abdominal exam: Present: hypoactive bowel sounds, soft, tenderness. Absent: distended, rebound, rigid Additional comments: clean incision - Extremities Exam Extremities exam: Absent: calf tenderness, pedal edema, tenderness - Back Exam Back exam: Absent: CVA tenderness (L), CVA tenderness (R) - Psychiatric Psychiatric exam: Present: depressed Internal Medicine: Result - Labs CBC & Chem 7: 03/08/18 05:23 03/08/18 05:23 Labs: Short CBC 03/08/18 Range/Units 05:23 WBC 5.7 (4.3-11.1) K/mcL Hgb 13.6 D (12.9-16.9) g/dL Hct 43.4 (37.5-50.1) % Plt Count 102 L (140-400) K/mcL Neutrophils # 4.3 (1.6-8.9) K/mcL BMP 03/08/18 05:23 Sodium 144 Potassium 4.2 Chloride 109 H Carbon Dioxide 29 BUN 19 Creatinine 0.99 Glucose 113 H Calcium 7.5 L - VTE Reasons for not Prescribing Prophylaxis: Treatment not Indicated - Low risk for VTE Documentation of Mechanical Device: Intermittent pneumatic compression device Consult Discharge Plan - Plan Referrals: Jona Denton MD [Primary Care Provider] -
[2018-03-08] MEDS: Pantoprazole 40 MG VIAL IVP SCH (13:06)
[2018-03-08] MEDS: *HR* Heparin 5,000 UNIT/ML VIAL SQ SCH ×2 (16:53→17:02)
[2018-03-09] MEDS: Ketorolac 30 MG/ML VIAL IM SCH ×5 (00:30→23:56)
[2018-03-09] MEDS: MetroNIDAZOLE 500 MG/100 ML 500 MG/100 ML BAG IVPB SCH ×4 (00:51→23:55)
[2018-03-09 05:50] LABS: Hematocrit 40.2 % (37.5-50.1); Hemoglobin 12.4 g/dL (12.9-16.9); Immature Granulocytes % 0.5 % (0-4); Lymphocytes % 7.5 %; Mean Corpuscular HGB Conc 30.8 g/dL (31.6-35.5); Mean Corpuscular Hemoglobin 29.7 pg (28.0-33.3); Mean Corpuscular Volume 96.2 fL (83.0-100.0); Mean Platelet Volume 9.7 fL (9.4-12.4); Platelet Count 115 K/mcL (140-400); Red Blood Count 4.18 M/mcL (4.19-5.50); Red Cell Distribution Width 13.7 % (11.5-14.5); Segmented Neutrophils % 79.6 %
[2018-03-09 05:51] LABS: Basophils % 0.4 %; Eosinophils # 0.1 K/mcL (0.0-0.6); Eosinophils % 1.6 %; Lymphocytes # 0.4 K/mcL (0.6-4.6); Monocytes # 0.6 K/mcL (0.0-1.3); Monocytes % 10.4 %; Neutrophils # 4.5 K/mcL (1.6-8.9)
[2018-03-09 06:08] LABS: BUN/Creatinine Ratio 23 (6-26); Blood Urea Nitrogen 21 mg/dL (6-20); Calcium 7.8 mg/dL (8.6-10.3); Carbon Dioxide 33 mEq/L (23-29); Chloride 106 mEq/L (98-107); Glucose 77 mg/dL (70-105); Magnesium 2.6 mg/dL (1.6-2.6); Osmolality,Calculated 298 (280-300); Potassium 3.7 mEq/L (3.5-5.1); Sodium 143 mEq/L (136-145); eGFR For African Americans > 60 (> 60); eGFR For Non-African Americans > 60 (> 60)
[2018-03-09] MEDS: *HR* Heparin 5,000 UNIT/ML VIAL SQ SCH ×2 (06:40→18:36)
[2018-03-09] MEDS: cefTRIAXone 1,000 MG in Water for inj. (sterile) 20 ML 10 ML IVP SCH (08:02)
[2018-03-09] MEDS: Pantoprazole 40 MG VIAL IVP SCH (08:09)
[2018-03-09] MEDS: 0.9 % Sodium Chloride 1,000 ML IVC SCH ×2 (09:25→10:56)
--- NOTE | 2018-03-09 10:51 | Gastroenterology Progress Note ---
Date of Encounter: 03/09/18 Time of Encounter: 10:00 - Time Spent With Patient Total time spent is greater than 50% in coordination of care (as documented) at patient's floor/unit and/or counseling patient: - Subjective Interval history: Mr. Joshi is a 53 year old male who recently diagnosed with crohn's disease presented to ED with acute onset of abdominal pain, nausea, vomiting. Pt was admitted here for SBO and went for Exploratory celiotomy and Ileocectomy with anastamosis on 03/07/18. Pt still has significant amount of secretions through NG tube. Abdominal pain is well controlled with current meds Patient denies any abdominal pain at this time and has been opting for Toradol in favor of narcotics in an attempt to facilitate return of gut activity post op. No fever or chills. Will check abdominal film today. Discussed with patient, his and daughter at bedside and answered all questions. - Constitutional Vitals: Temp Pulse Resp BP Pulse Ox 98.7 F 59 16 117/71 98 03/09/18 07:33 03/09/18 07:33 03/09/18 07:33 03/09/18 07:33 03/09/18 07:33 General appearance: Present: cooperative, A&O X 3, no acute distress, answers questions appropriately - GI/Abdominal GI/Abdominal exam: Present: hypoactive bowel sounds, soft, no peritoneal signs Results - Labs CBC & Chem 7: 03/09/18 05:06 03/09/18 05:06 Labs: Last Result Calcium 7.8 mg/dL (8.6-10.3) L 03/09/18 05:06 Entire Visit Hgb 12.4 g/dL (12.9-16.9) L 03/09/18 05:06 Hct 40.2 % (37.5-50.1) 03/09/18 05:06 Total Bilirubin 2.7 mg/dL (0.3-1.0) H 03/07/18 05:43 AST 13 Units/L (13-39) 03/07/18 05:43 ALT 19 Units/L (7-52) 03/07/18 05:43 Lipase 16 Units/L (11-82) 03/06/18 14:14 - VTE Reasons for not Prescribing Prophylaxis: Treatment not Indicated - Low risk for VTE Documentation of Mechanical Device: Intermittent pneumatic compression device Consult Discharge Plan - Plan Referrals: Jona Denton MD [Primary Care Provider] -
--- NOTE | 2018-03-09 11:17 | General Surgery Progress Note ---
<Alonso Cruz - Last Filed: 03/09/18 14:51> Date of Encounter: 03/09/18 Time of Encounter: 07:30 - Assessment and Plan (1) Small bowel obstruction Current Visit: Yes Status: Acute POD #2 s/p Exploratory celiotomy, Ileocectomy with anastamosis. Pt tolerated procedure well Xray today demonstarted pill capsule has passed into large intestine past the point of surgery. NG tube placement good. NPO NG tube to LIWS Supportive Care and pain control PPI therapy daily IS Q1H while awake continue abx per primary team continue to encourage ambulation (2) DVT prophylaxis Current Visit: Yes Status: Acute continue Heparin 5,000 SQ Q12H Subjective Patient reports: no new complaints, voiding w/o difficulty, no flatus, no bowel movement, afebrile Narrative: Pt still not having gas or BM. Patient concerned about camera pill and it's location. Abd pn is managed. Encouraged pt to use pain medication and not to be ocncerned abotu it delayign return of bowel function especially since he is getting toradol which is a non opioid pain reliever. Objective Vital Signs - Last 8 Hours Temp Pulse Resp BP Pulse Ox 03/09/18 07:33 98.7 F 59 16 117/71 98 03/09/18 05:56 98.6 F 61 16 120/74 98 Intake and Output 03/08/18 03/09/18 03/09/18 23:59 07:59 15:59 Intake Total 1100 / 1100 100 / 100 1710 / 1710 Output Total 50 / 50 1700 / 1700 Balance 1050 / 1050 -1600 / -1600 1710 / 1710 Intake: IV Fluids 1100 / 1100 100 / 100 1710 / 1710 0.45% Sodium Chloride 1000 Ml 1000 / 1000 600 / 600 1000 Ml 1,000 ML @ 100 mls/hr IVC .Q10H DOC Rx#:[id number] 0.9 % Sodium Chloride 1,000 ML 1000 / 1000 @ 3750 mls/hr IVC .Q16M DOC Rx# :[id number] Rocephin 1,000 MG In Water for 10 / 10 inj. (sterile) 10 ML @ 300 mls/ hr IVP DAILY DOC Rx#:[id number] Flagyl Premix 500 MG/100 ML 500 100 / 100 100 / 100 100 / 100 mg In 100 ml @ 100 mls/hr IVPB Q8HR [facility] Rx#:[id number] Oral 0 / 0 Output: Urine 50 / 50 350 / 350 Gastric Drainage 1350 / 1350 Other: Meal NPO # Voids 1 Blood Glucose* 86 73 - General physical appearance well developed, well nourished, no distress - Eyes normal ocular movement - ENT no hearing loss - Neck Neck exam: trachea midline - Respiratory normal expansion, normal respiratory effort, clear to auscultation - Cardiovascular Cardiovascular exam: Present: RRR, no murmurs/rubs/gallops - Abdomen Abdomen: Present: bowel sounds present (hypoactive upper quadrants), soft, tender (mild incisional pain) - Integumentary no abnormal pigmentation - Neurologic CN 2-12 grossly intact - Musculoskeletal normal gait, normal posture - Psychiatric oriented to time, oriented to person, oriented to place, speech is normal, memory intact - Labs 03/09/18 05:06 03/09/18 05:06 Diabetes panel 03/09/18 Range/Units 05:06 Sodium 143 (136-145) mEq/L Potassium 3.7 (3.5-5.1) mEq/L Chloride 106 (98-107) mEq/L Carbon Dioxide 33 H (23-29) mEq/L BUN 21 H (6-20) mg/dL Creatinine 0.91 (0.70-1.30) mg/dL Glucose 77 (70-105) mg/dL Calcium 7.8 L (8.6-10.3) mg/dL Calcium panel 03/09/18 Range/Units 05:06 Calcium 7.8 L (8.6-10.3) mg/dL Pituitary panel 03/09/18 Range/Units 05:06 Sodium 143 (136-145) mEq/L Potassium 3.7 (3.5-5.1) mEq/L Chloride 106 (98-107) mEq/L Carbon Dioxide 33 H (23-29) mEq/L BUN 21 H (6-20) mg/dL Creatinine 0.91 (0.70-1.30) mg/dL Glucose 77 (70-105) mg/dL Calcium 7.8 L (8.6-10.3) mg/dL Adrenal panel 03/09/18 Range/Units 05:06 Sodium 143 (136-145) mEq/L Potassium 3.7 (3.5-5.1) mEq/L Chloride 106 (98-107) mEq/L Carbon Dioxide 33 H (23-29) mEq/L BUN 21 H (6-20) mg/dL Creatinine 0.91 (0.70-1.30) mg/dL Glucose 77 (70-105) mg/dL Calcium 7.8 L (8.6-10.3) mg/dL - VTE Reasons for not Prescribing Prophylaxis: Treatment not Indicated - Low risk for VTE Documentation of Mechanical Device: Intermittent pneumatic compression device Consult Discharge Plan - Plan Referrals: Jona Denton MD [Primary Care Provider] - <Donovan Patterson - Last Filed: 03/09/18 15:59> Date of Encounter: 03/09/18 Objective Vital Signs - Last 8 Hours Temp Pulse Resp BP Pulse Ox 03/09/18 15:43 98.4 F 64 16 120/71 97 03/09/18 12:21 98.8 F 60 16 117/68 97 Intake and Output 03/08/18 03/09/18 03/09/18 23:59 07:59 15:59 Intake Total 1100 / 1100 100 / 100 1710 / 1710 Output Total 50 / 50 1700 / 1700 650 / 650 Balance 1050 / 1050 -1600 / -1600 1060 / 1060 Intake: IV Fluids 1100 / 1100 100 / 100 1710 / 1710 0.45% Sodium Chloride 1000 Ml 1000 / 1000 600 / 600 1000 Ml 1,000 ML @ 100 mls/hr IVC .Q10H DOC Rx#:[id number] 0.9 % Sodium Chloride 1,000 ML 1000 / 1000 @ 3750 mls/hr IVC .Q16M DOC Rx# :[id number] Rocephin 1,000 MG In Water for 10 / 10 inj. (sterile) 10 ML @ 300 mls/ hr IVP DAILY DOC Rx#:[id number] Flagyl Premix 500 MG/100 ML 500 100 / 100 100 / 100 100 / 100 mg In 100 ml @ 100 mls/hr IVPB Q8HR DOC Rx#:[id number] Oral 0 / 0 0 / 0 Output: Urine 50 / 50 350 / 350 350 / 350 Gastric Drainage 1350 / 1350 300 / 300 Other: Meal NPO # Voids 1 Blood Glucose* 86 73 - Labs 03/09/18 05:06 03/09/18 05:06 Diabetes panel 03/09/18 Range/Units 05:06 Sodium 143 (136-145) mEq/L Potassium 3.7 (3.5-5.1) mEq/L Chloride 106 (98-107) mEq/L Carbon Dioxide 33 H (23-29) mEq/L BUN 21 H (6-20) mg/dL Creatinine 0.91 (0.70-1.30) mg/dL Glucose 77 (70-105) mg/dL Calcium 7.8 L (8.6-10.3) mg/dL Calcium panel 03/09/18 Range/Units 05:06 Calcium 7.8 L (8.6-10.3) mg/dL Pituitary panel 03/09/18 Range/Units 05:06 Sodium 143 (136-145) mEq/L Potassium 3.7 (3.5-5.1) mEq/L Chloride 106 (98-107) mEq/L Carbon Dioxide 33 H (23-29) mEq/L BUN 21 H (6-20) mg/dL Creatinine 0.91 (0.70-1.30) mg/dL Glucose 77 (70-105) mg/dL Calcium 7.8 L (8.6-10.3) mg/dL Adrenal panel 03/09/18 Range/Units 05:06 Sodium 143 (136-145) mEq/L Potassium 3.7 (3.5-5.1) mEq/L Chloride 106 (98-107) mEq/L Carbon Dioxide 33 H (23-29) mEq/L BUN 21 H (6-20) mg/dL Creatinine 0.91 (0.70-1.30) mg/dL Glucose 77 (70-105) mg/dL Calcium 7.8 L (8.6-10.3) mg/dL - Attending Attestation I have personally seen and examined the patient. I have reviewed pertinent labs , imaging, progress notes, including this one. I agree with the above assessment and plan and wish to include the following... Pain controlled; ambulating; voiding on his own; abdomen appropriately tender; incision is clean, dry, intact; NG tube with greater than 1L of output; will keep NPO; keep NG tube; replete lytes; encourage IS/ambulation; awaiting return of bowel function;
[2018-03-09] MEDS: D5% in 0.45% NACL w KCl 20 MEQ/1,000 ML MLS IVC SCH ×2 (12:23→23:54)
--- NOTE | 2018-03-09 14:27 | Internal Med Progress Note ---
Date of Encounter: 03/09/18 Time of Encounter: 14:23 - Assessment and plan (1) Small bowel obstruction Current Visit: Yes Status: Acute Assessment and plan: s/p Exploratory celiotomy and Ileocectomy with anastamosis POD # 2 cont IV hydration Will check with surgery about TPN / Clinimex option since pt is not able to take any PO nutrition Reviewed abd X ray today - showed mildly distended SB, possible ileus NPO Cont empirical abx Rocephin + Flagyl Cont post op care as per surgery recommendation (2) Abdominal pain Current Visit: Yes Status: Acute Assessment and plan: Acute SBO with ?? Colitis cont empirical abx Qualifiers: Abdominal location: generalized Qualified Code(s): R10.84 - Generalized abdominal pain (3) Nausea and vomiting Current Visit: Yes Status: Acute Assessment and plan: cont anti emetics Qualifiers: Vomiting type: unspecified Vomiting Intractability: non-intractable Qualified Code(s): R11.2 - Nausea with vomiting, unspecified (4) DVT prophylaxis Current Visit: Yes Status: Acute Assessment and plan: Low risk. Start SCDs. - Time Spent With Patient Total time spent is greater than 50% in coordination of care (as documented) at patient's floor/unit and/or counseling patient: - Subjective Interval history: Mr. Joshi is a 53 year old male who recently diagnosed with crohn's disease presented to ED with acute onset of abdominal pain, nausea, vomiting. Pt was admitted here for SBO and went for Exploratory celiotomy and Ileocectomy with anastamosis on 03/07/18. His gastric secretions slowed down through NG tube. Abdominal pain is well controlled with current meds. Denied any nausea. Still have not passed any gas / BM - Constitutional Vitals: Temp Pulse Resp BP Pulse Ox 98.8 F 60 16 117/68 97 03/09/18 12:21 03/09/18 12:21 03/09/18 12:21 03/09/18 12:21 03/09/18 12:21 General appearance: Present: cooperative, A&O X 3, answers questions appropriately - Head Head exam: Present: atraumatic, normal inspection - Neck Neck exam general surgery: Present: supple - Respiratory Respiratory exam: Present: decreased breath sounds. Absent: rales, respiratory distress, rhonchi, wheezes - Cardiovascular Cardiovascular exam: Present: RRR, +S1, +S2. Absent: tachycardia - GI/Abdominal GI/Abdominal exam: Present: hypoactive bowel sounds, soft, tenderness. Absent: rebound, rigid - Extremities Exam Extremities exam: Absent: calf tenderness, pedal edema, tenderness - Back Exam Back exam: Absent: CVA tenderness (L), CVA tenderness (R) - Neurological Exam Neurological exam: Present: alert - Psychiatric Psychiatric exam: Present: normal affect, normal mood Internal Medicine: Result - Labs CBC & Chem 7: 03/09/18 05:06 03/09/18 05:06 Labs: Short CBC 03/09/18 Range/Units 05:06 WBC 5.6 (4.3-11.1) K/mcL Hgb 12.4 L (12.9-16.9) g/dL Hct 40.2 (37.5-50.1) % Plt Count 115 L (140-400) K/mcL Neutrophils # 4.5 (1.6-8.9) K/mcL BMP 03/09/18 05:06 Sodium 143 Potassium 3.7 Chloride 106 Carbon Dioxide 33 H BUN 21 H Creatinine 0.91 Glucose 77 Calcium 7.8 L - Impressions Impressions Abdomen X-Ray 03/09/18 10:45 IMPRESSION: 1. The NGT tip is located near the gastric antrum. 2. There is a capsule device in the right upper quadrant of the abdomen, near the hepatic flexure, probably in colon. 3. Mildly distended loop of small bowel in the left upper quadrant of the abdomen which could be related to an ileus. D/ / 03/09/2018 11:28:39 Ede Cornelius MD / linda Interpreting Provider: Ede Cornelius MD - VTE Reasons for not Prescribing Prophylaxis: Treatment not Indicated - Low risk for VTE Documentation of Mechanical Device: Intermittent pneumatic compression device Consult Discharge Plan - Plan Referrals: Jona Denton MD [Primary Care Provider] -
[2018-03-10 05:12] LABS: Basophils % 0.4 %; Eosinophils # 0.2 K/mcL (0.0-0.6); Eosinophils % 3.2 %; Hematocrit 38.2 % (37.5-50.1); Hemoglobin 12.2 g/dL (12.9-16.9); Immature Granulocytes % 0.6 % (0-4); Lymphocytes # 0.7 K/mcL (0.6-4.6); Lymphocytes % 14.2 %; Mean Corpuscular HGB Conc 31.9 g/dL (31.6-35.5); Mean Corpuscular Hemoglobin 30.4 pg (28.0-33.3); Mean Corpuscular Volume 95.3 fL (83.0-100.0); Mean Platelet Volume 9.4 fL (9.4-12.4); Monocytes # 0.5 K/mcL (0.0-1.3); Monocytes % 10.2 %; Neutrophils # 3.4 K/mcL (1.6-8.9); Platelet Count 132 K/mcL (140-400); Red Blood Count 4.01 M/mcL (4.19-5.50); Red Cell Distribution Width 13.2 % (11.5-14.5); Segmented Neutrophils % 71.4 %
[2018-03-10 05:30] LABS: BUN/Creatinine Ratio 24 (6-26); Blood Urea Nitrogen 15 mg/dL (6-20); Calcium 7.8 mg/dL (8.6-10.3); Carbon Dioxide 28 mEq/L (23-29); Chloride 108 mEq/L (98-107); Glucose 107 mg/dL (70-105); Magnesium 2.6 mg/dL (1.6-2.6); Osmolality,Calculated 297 (280-300); Potassium 3.6 mEq/L (3.5-5.1); Sodium 143 mEq/L (136-145); eGFR For African Americans > 60 (> 60); eGFR For Non-African Americans > 60 (> 60)
[2018-03-10] MEDS: *HR* Heparin 5,000 UNIT/ML VIAL SQ SCH ×2 (05:40→17:14)
[2018-03-10] MEDS: Ketorolac 30 MG/ML VIAL IM SCH ×3 (05:43→17:14)
[2018-03-10] MEDS: Pantoprazole 40 MG VIAL IVP SCH (09:17)
[2018-03-10] MEDS: MetroNIDAZOLE 500 MG/100 ML 500 MG/100 ML BAG IVPB SCH ×2 (09:18→17:13)
[2018-03-10] MEDS: cefTRIAXone 1,000 MG in Water for inj. (sterile) 20 ML 10 ML IVP SCH (09:32)
--- NOTE | 2018-03-10 10:27 | General Surgery Progress Note ---
<Hai Camacho - Last Filed: 03/10/18 10:33> Date of Encounter: 03/10/18 Time of Encounter: 09:30 - Assessment and Plan (1) Small bowel obstruction Current Visit: Yes Status: Acute POD #3 s/p Exploratory celiotomy, Ileocectomy with anastamosis. Pt tolerated procedure well Incision clean and dry No flatus/BM POD3 Plan: Continue NPO; Plan for TPN in 24-48hrs Continue NG tube at [facility] Supportive Care and pain control PPI therapy daily IS Q1H while awake continue abx per primary team continue to encourage ambulation Subjective Narrative: Mr. Joshi POD3 after SBO/ileocecectomy, seen and evaluated in chair at bedside, accompanied by . Patient states his pain has been in good control, he has been npo, denies nausea/vomiting/fever. Has good UOP denies flatus/BMs. Objective Vital Signs - Last 8 Hours Temp Pulse Resp BP Pulse Ox 03/10/18 05:24 98.8 F 65 15 125/79 98 Intake and Output 03/09/18 03/10/18 03/10/18 23:59 07:59 15:59 Intake Total 1100 / 1100 100 / 100 0 / 0 Output Total 250 / 250 800 / 800 Balance 850 / 850 -700 / -700 0 / 0 Intake: IV Fluids 1100 / 1100 100 / 100 KCl 20mEq IN D5%-0.45 NACL 20 1000 / 1000 meq In 1,000 ml @ 100 mls/hr IVC .Q10H DOC Rx#:[id number] Flagyl Premix 500 MG/100 ML 500 100 / 100 100 / 100 mg In 100 ml @ 100 mls/hr IVPB Q8HR DOC Rx#:[id number] Oral 0 / 0 0 / 0 0 / 0 Output: Urine 250 / 250 550 / 550 Gastric Drainage 250 / 250 Other: Meal NPO Percent of Meal Consumed 0% Blood Glucose* 82 93 - General physical appearance well developed, well nourished, no distress - Eyes normal ocular movement - ENT normal mucosa - Neck Neck exam: no lymphadectomy - Respiratory normal expansion, normal respiratory effort, clear to auscultation - Cardiovascular Cardiovascular exam: Present: RRR, no murmurs/rubs/gallops - Abdomen Abdomen: Present: soft, non tender Additional Comments: midline incision, clean/dry/intact without erythema or discharge - Incision Incision: Present: clean and dry, intact - Neurologic normal coordination, normal sensation - Musculoskeletal normal posture - Psychiatric speech is normal, memory intact - Labs 03/10/18 04:48 03/10/18 04:48 Diabetes panel 03/10/18 Range/Units 04:48 Sodium 143 (136-145) mEq/L Potassium 3.6 (3.5-5.1) mEq/L Chloride 108 H (98-107) mEq/L Carbon Dioxide 28 (23-29) mEq/L BUN 15 (6-20) mg/dL Creatinine 0.63 L (0.70-1.30) mg/dL Glucose 107 H (70-105) mg/dL Calcium 7.8 L (8.6-10.3) mg/dL Calcium panel 03/10/18 Range/Units 04:48 Calcium 7.8 L (8.6-10.3) mg/dL Pituitary panel 03/10/18 Range/Units 04:48 Sodium 143 (136-145) mEq/L Potassium 3.6 (3.5-5.1) mEq/L Chloride 108 H (98-107) mEq/L Carbon Dioxide 28 (23-29) mEq/L BUN 15 (6-20) mg/dL Creatinine 0.63 L (0.70-1.30) mg/dL Glucose 107 H (70-105) mg/dL Calcium 7.8 L (8.6-10.3) mg/dL Adrenal panel 03/10/18 Range/Units 04:48 Sodium 143 (136-145) mEq/L Potassium 3.6 (3.5-5.1) mEq/L Chloride 108 H (98-107) mEq/L Carbon Dioxide 28 (23-29) mEq/L BUN 15 (6-20) mg/dL Creatinine 0.63 L (0.70-1.30) mg/dL Glucose 107 H (70-105) mg/dL Calcium 7.8 L (8.6-10.3) mg/dL - VTE Reasons for not Prescribing Prophylaxis: Treatment not Indicated - Low risk for VTE Documentation of Mechanical Device: Intermittent pneumatic compression device Consult Discharge Plan - Plan Referrals: Jona Denton MD [Primary Care Provider] - <Roddy Hummel - Last Filed: 03/11/18 13:55> Date of Encounter: 03/10/18 - Assessment and Plan (1) Small bowel obstruction Current Visit: Yes Status: Acute Objective Vital Signs - Last 8 Hours Temp Pulse Resp BP Pulse Ox 03/11/18 10:19 98.3 F 96 16 143/87 97 03/11/18 06:53 98.8 F 66 16 136/82 98 Intake and Output 03/10/18 03/11/18 03/11/18 23:59 07:59 15:59 Intake Total 580 / 580 100 / 100 Output Total 400 / 400 975 / 975 300 / 300 Balance 180 / 180 -875 / -875 -300 / -300 Intake: IV Fluids 100 / 100 100 / 100 Flagyl Premix 500 MG/100 ML 500 100 / 100 100 / 100 mg In 100 ml @ 100 mls/hr IVPB Q8HR [facility] Rx#:[id number] Oral 480 / 480 0 / 0 Output: Urine 400 / 400 975 / 975 300 / 300 Gastric Drainage 0 / 0 0 / 0 Other: Meal Dinner Percent of Meal Consumed 100% Weight 95.4 kg Patient Weight 03/11/18 23:59 Weight 95.4 kg - Labs 03/11/18 05:22 03/11/18 05:22 Diabetes panel 03/11/18 Range/Units 05:22 Sodium 138 (136-145) mEq/L Potassium 3.4 L (3.5-5.1) mEq/L Chloride 105 (98-107) mEq/L Carbon Dioxide 27 (23-29) mEq/L BUN 9 (6-20) mg/dL Creatinine 0.65 L (0.70-1.30) mg/dL Glucose 95 (70-105) mg/dL Calcium 8.0 L (8.6-10.3) mg/dL AST 12 L (13-39) Units/L ALT 17 (7-52) Units/L Alkaline Phosphatase 54 (34-104) Units/L Albumin 3.0 L (3.5-5.7) g/dL Calcium panel 03/11/18 Range/Units 05:22 Calcium 8.0 L (8.6-10.3) mg/dL Phosphorus 1.9 L (2.7-4.5) mg/dL Albumin 3.0 L (3.5-5.7) g/dL Pituitary panel 03/11/18 Range/Units 05:22 Sodium 138 (136-145) mEq/L Potassium 3.4 L (3.5-5.1) mEq/L Chloride 105 (98-107) mEq/L Carbon Dioxide 27 (23-29) mEq/L BUN 9 (6-20) mg/dL Creatinine 0.65 L (0.70-1.30) mg/dL Glucose 95 (70-105) mg/dL Calcium 8.0 L (8.6-10.3) mg/dL Adrenal panel 03/11/18 Range/Units 05:22 Sodium 138 (136-145) mEq/L Potassium 3.4 L (3.5-5.1) mEq/L Chloride 105 (98-107) mEq/L Carbon Dioxide 27 (23-29) mEq/L BUN 9 (6-20) mg/dL Creatinine 0.65 L (0.70-1.30) mg/dL Glucose 95 (70-105) mg/dL Calcium 8.0 L (8.6-10.3) mg/dL Total Bilirubin 0.8 (0.3-1.0) mg/dL AST 12 L (13-39) Units/L ALT 17 (7-52) Units/L Alkaline Phosphatase 54 (34-104) Units/L Albumin 3.0 L (3.5-5.7) g/dL - Attending Attestation I examined this patient and my medical decision-making was reviewed with the Resident Physician. I agree with the documented findings, disposition and treatment plan as described except to the extent set forth below. I reviewed the above assessment and evaluation and agree with the above- mentioned plan. Will clamp NG tube to see how he tolerates and then determine what the residual is tomorrow. Contiue with IV fluid hydration.
[2018-03-10] MEDS: D5% in 0.45% NACL w KCl 20 MEQ/1,000 ML MLS IVC SCH (12:03)
[2018-03-10] MEDS ORDERED: D5% in 0.45% NACL w KCl 20 MEQ/1,000 ML MLS IVC SCH (13:16)
--- NOTE | 2018-03-10 14:18 | Internal Med Progress Note ---
<Bhaskar Romero - Last Filed: 03/10/18 14:46> Date of Encounter: 03/10/18 Time of Encounter: 09:50 - Assessment and plan (1) Abdominal pain Current Visit: Yes Status: Resolved Assessment and plan: Resolved Secondary to Acute SBO secondary to GI capsule study with questionable colitis on CT scan cont empirical abx of ceftriaxone, Flagyl day #4 Tolerating surgical pain well and has not used any pain medications in the last 24 hours Has Toradol and fentanyl when necessary Qualifiers: Abdominal location: generalized Qualified Code(s): R10.84 - Generalized abdominal pain (2) Nausea and vomiting Current Visit: Yes Status: Resolved Assessment and plan: cont anti emetics Asymptomatic at this time Qualifiers: Vomiting type: unspecified Vomiting Intractability: non-intractable Qualified Code(s): R11.2 - Nausea with vomiting, unspecified (3) Small bowel obstruction Current Visit: Yes Status: Acute Assessment and plan: s/p Exploratory celiotomy and Ileocectomy with anastamosis with general surgery- POD # 3 cont IV hydration Recommend starting TPN due to all inability to take oral nutrition, Gen. surgery would like to wait until tomorrow Reviewed abd X ray 03/09/18 - showed mildly distended SB, possible ileus, capsule near the hepatic flexure of the colon NPO, NG tube Cont empirical abx Rocephin + Flagyl day #4 Cont post op care as per surgery recommendation Await return of bowel function to pull NG tube and start diet, will defer to surgery (4) DVT prophylaxis Current Visit: Yes Status: Acute Assessment and plan: Heparin 5000 units every 12 hours. - Time Spent With Patient Total time spent is greater than 50% in coordination of care (as documented) at patient's floor/unit and/or counseling patient: - Subjective Interval history: Patient seen and examined the patient since morning. He states overall he is feeling well with no complaints of abdominal pain, nausea, vomiting. States that he tolerated his surgery well however is still but unable to have flatus or a bowel movement. His only complaint at this time is mild irritation with his nasogastric tube. He states that he has been walking around to try and encourage return of bowel function. He states he is using his incentive spirometer at least once per hour. - Constitutional Vitals: Temp Pulse Resp BP Pulse Ox 99.3 F 57 15 133/81 99 03/10/18 11:39 03/10/18 11:39 03/10/18 11:39 03/10/18 11:39 03/10/18 11:39 General appearance: Present: cooperative, A&O X 3, answers questions appropriately Exam: Gen.: Vitals noted. No acute distress. AAOx3 HEENT: PERRL/EOMI, oropharynx clear, Normocephalic, atraumatic, MMM Cardiac: RRR, no murmur, +S1/S2 Pulmonary: CTA bilaterally, no wheezes, rales or rhonchi, equal chest expansion Abdomen: soft, nontender, BS very rare, no guarding, no rebound. MSK: ROM intact, no joint swelling noted Extremities: no BLE edema, nontender calf, no cyanosis or clubbing Neuro: A&Ox3, moves all extremities, no focal deficits Psych: Appropriate mood and behavior Internal Medicine: Result - Labs CBC & Chem 7: 03/10/18 04:48 03/10/18 04:48 Labs: Short CBC 03/10/18 Range/Units 04:48 WBC 4.7 (4.3-11.1) K/mcL Hgb 12.2 L (12.9-16.9) g/dL Hct 38.2 (37.5-50.1) % Plt Count 132 L (140-400) K/mcL Neutrophils # 3.4 (1.6-8.9) K/mcL BMP 03/10/18 04:48 Sodium 143 Potassium 3.6 Chloride 108 H Carbon Dioxide 28 BUN 15 Creatinine 0.63 L Glucose 107 H Calcium 7.8 L - VTE Reasons for not Prescribing Prophylaxis: Treatment not Indicated - Low risk for VTE Documentation of Mechanical Device: Intermittent pneumatic compression device Consult Discharge Plan - Plan Referrals: Jona Denton MD [Primary Care Provider] - <Kate Monge - Last Filed: 03/10/18 17:46> Date of Encounter: 03/10/18 - Assessment and plan (1) Abdominal pain Current Visit: Yes Status: Resolved Qualifiers: Abdominal location: generalized Qualified Code(s): R10.84 - Generalized abdominal pain (2) Nausea and vomiting Current Visit: Yes Status: Resolved Qualifiers: Vomiting type: unspecified Vomiting Intractability: non-intractable Qualified Code(s): R11.2 - Nausea with vomiting, unspecified (3) Small bowel obstruction Current Visit: Yes Status: Acute (4) DVT prophylaxis Current Visit: Yes Status: Acute - Time Spent With Patient Total time spent is greater than 50% in coordination of care (as documented) at patient's floor/unit and/or counseling patient: - Constitutional Vitals: Temp Pulse Resp BP Pulse Ox 99.3 F 57 15 133/81 99 03/10/18 11:39 03/10/18 11:39 03/10/18 11:39 03/10/18 11:39 03/10/18 11:39 Internal Medicine: Result - Labs CBC & Chem 7: 03/10/18 04:48 03/10/18 04:48 Labs: Short CBC 03/10/18 Range/Units 04:48 WBC 4.7 (4.3-11.1) K/mcL Hgb 12.2 L (12.9-16.9) g/dL Hct 38.2 (37.5-50.1) % Plt Count 132 L (140-400) K/mcL Neutrophils # 3.4 (1.6-8.9) K/mcL BMP 03/10/18 04:48 Sodium 143 Potassium 3.6 Chloride 108 H Carbon Dioxide 28 BUN 15 Creatinine 0.63 L Glucose 107 H Calcium 7.8 L - Attending Attestation I examined this patient and my medical decision-making was reviewed with the Resident Physician Dr. Romero. I agree with the documented findings, disposition and treatment plan as described except to the extent set forth below. Mr. Joshi is a 53 year old male who recently diagnosed with crohn's disease presented to ED with acute onset of abdominal pain, nausea, vomiting. s/p exp laparotomy. Still have not passed gas Gen: A,A<, O x 3 Chest: CTA Heart: S1S2+ Sinus tachy Abd; Soft, BS decreased, clean incision a/p 1. Sepsis - He does meet sepsis criteria with low grade temp, elevated WBC, tachycardia and source of inf intra abdominal 2. Acute SBO 3. Acute colitis vs Crohn's flare up s/p Exploratory celiotomy and Ileocectomy with anastamosis POD # 3 cont IV hydration NPO GI and Surgery on board Cont empirical abx Rocephin + Flagyl
[2018-03-11] MEDS: MetroNIDAZOLE 500 MG/100 ML 500 MG/100 ML BAG IVPB SCH ×4 (00:07→23:56)
[2018-03-11] MEDS: *HR* Heparin 5,000 UNIT/ML VIAL SQ SCH ×2 (05:52→18:20)
[2018-03-11 06:07] LABS: Basophils % 0.7 %; Eosinophils # 0.2 K/mcL (0.0-0.6); Eosinophils % 2.9 %; Hematocrit 40.9 % (37.5-50.1); Hemoglobin 13.3 g/dL (12.9-16.9); Immature Granulocytes % 1.7 % (0-4); Lymphocytes # 0.7 K/mcL (0.6-4.6); Lymphocytes % 12.7 %; Mean Corpuscular HGB Conc 32.5 g/dL (31.6-35.5); Mean Corpuscular Hemoglobin 29.6 pg (28.0-33.3); Mean Corpuscular Volume 90.9 fL (83.0-100.0); Mean Platelet Volume 9.5 fL (9.4-12.4); Monocytes # 0.6 K/mcL (0.0-1.3); Monocytes % 10.6 %; Neutrophils # 4.2 K/mcL (1.6-8.9); Platelet Count 144 K/mcL (140-400); Red Cell Distribution Width 13.1 % (11.5-14.5); Segmented Neutrophils % 71.4 %
[2018-03-11 06:21] LABS: Alanine Aminotransferase 17 Units/L (7-52); Albumin/Globulin Ratio 1.3 (1.1-2.2); Alkaline Phosphatase 54 Units/L (34-104); Aspartate Amino Transferase 12 Units/L (13-39); BUN/Creatinine Ratio 14 (6-26); Bilirubin,Total 0.8 mg/dL (0.3-1.0); Blood Urea Nitrogen 9 mg/dL (6-20); Carbon Dioxide 27 mEq/L (23-29); Chloride 105 mEq/L (98-107); Globulin 2.3 g/dL (2.4-3.5); Glucose 95 mg/dL (70-105); Magnesium 2.2 mg/dL (1.6-2.6); Osmolality,Calculated 284 (280-300); Phosphorous 1.9 mg/dL (2.7-4.5); Potassium 3.4 mEq/L (3.5-5.1); Sodium 138 mEq/L (136-145); Total Protein 5.3 g/dL (6.4-8.9); eGFR For African Americans > 60 (> 60); eGFR For Non-African Americans > 60 (> 60)
[2018-03-11] MEDS: Pantoprazole 40 MG VIAL IVP SCH (08:39)
[2018-03-11] MEDS: cefTRIAXone 1,000 MG in Water for inj. (sterile) 20 ML 10 ML IVP SCH (08:39)
[2018-03-11] MEDS ORDERED: Methylnaltrexone 12 MG/0.6 ML SYRINGE SQ ONE (09:10)
[2018-03-11] MEDS ORDERED: Potassium Phosphate 44 MEQ in 0.9 % Sodium Chloride 250 ML IVPB ONE (11:01)
--- NOTE | 2018-03-11 13:05 | General Surgery Progress Note ---
<Hai Camacho - Last Filed: 03/11/18 13:14> Date of Encounter: 03/11/18 Time of Encounter: 09:30 - Assessment and Plan (1) Small bowel obstruction Current Visit: Yes Status: Acute POD #4 s/p Exploratory celiotomy, Ileocectomy with anastamosis. Incision remains clean and dry No flatus/BM POD4 Plan: Ordering KUB - KUB shows no dilated bowel Trial methylnaltrexone in setting of adynamic ileus, will hold off on TPN/picc consult for today Continue NPO, NG tube Supportive Care and pain control PPI therapy daily IS Q1H while awake continue abx per primary team continue to encourage ambulation Subjective Patient reports: voiding w/o difficulty, afebrile Narrative: Mr. Joshi seen and evaluated at bedside accompanied by . Patient denies fever/nausea/vomiting/abdominal pain, he reports feeling his own bowel sounds but no flatus/BM. He is able to ambulate. He states his pain is controlled. Objective Vital Signs - Last 8 Hours Temp Pulse Resp BP Pulse Ox 03/11/18 10:19 98.3 F 96 16 143/87 97 03/11/18 06:53 98.8 F 66 16 136/82 98 Intake and Output 03/10/18 03/11/18 03/11/18 23:59 07:59 15:59 Intake Total 580 / 580 100 / 100 Output Total 400 / 400 975 / 975 300 / 300 Balance 180 / 180 -875 / -875 -300 / -300 Intake: IV Fluids 100 / 100 100 / 100 Flagyl Premix 500 MG/100 ML 500 100 / 100 100 / 100 mg In 100 ml @ 100 mls/hr IVPB Q8HR [facility] Rx#:[id number] Oral 480 / 480 0 / 0 Output: Urine 400 / 400 975 / 975 300 / 300 Gastric Drainage 0 / 0 0 / 0 Other: Meal Dinner Percent of Meal Consumed 100% Weight 95.4 kg Patient Weight 03/11/18 23:59 Weight 95.4 kg - General physical appearance well developed, well nourished, no distress - Eyes normal ocular movement - ENT normal mucosa - Neck Neck exam: no lymphadectomy - Respiratory normal expansion, normal respiratory effort, clear to auscultation - Abdomen Abdomen: Present: bowel sounds present, soft. Absent: guarding, rebound, rigid - Incision Incision: Present: clean and dry, intact. Absent: swollen, inflamed - Neurologic normal coordination, normal sensation - Psychiatric speech is normal, memory intact - Labs 03/11/18 05:22 03/11/18 05:22 Diabetes panel 03/11/18 Range/Units 05:22 Sodium 138 (136-145) mEq/L Potassium 3.4 L (3.5-5.1) mEq/L Chloride 105 (98-107) mEq/L Carbon Dioxide 27 (23-29) mEq/L BUN 9 (6-20) mg/dL Creatinine 0.65 L (0.70-1.30) mg/dL Glucose 95 (70-105) mg/dL Calcium 8.0 L (8.6-10.3) mg/dL AST 12 L (13-39) Units/L ALT 17 (7-52) Units/L Alkaline Phosphatase 54 (34-104) Units/L Albumin 3.0 L (3.5-5.7) g/dL Calcium panel 03/11/18 Range/Units 05:22 Calcium 8.0 L (8.6-10.3) mg/dL Phosphorus 1.9 L (2.7-4.5) mg/dL Albumin 3.0 L (3.5-5.7) g/dL Pituitary panel 03/11/18 Range/Units 05:22 Sodium 138 (136-145) mEq/L Potassium 3.4 L (3.5-5.1) mEq/L Chloride 105 (98-107) mEq/L Carbon Dioxide 27 (23-29) mEq/L BUN 9 (6-20) mg/dL Creatinine 0.65 L (0.70-1.30) mg/dL Glucose 95 (70-105) mg/dL Calcium 8.0 L (8.6-10.3) mg/dL Adrenal panel 03/11/18 Range/Units 05:22 Sodium 138 (136-145) mEq/L Potassium 3.4 L (3.5-5.1) mEq/L Chloride 105 (98-107) mEq/L Carbon Dioxide 27 (23-29) mEq/L BUN 9 (6-20) mg/dL Creatinine 0.65 L (0.70-1.30) mg/dL Glucose 95 (70-105) mg/dL Calcium 8.0 L (8.6-10.3) mg/dL Total Bilirubin 0.8 (0.3-1.0) mg/dL AST 12 L (13-39) Units/L ALT 17 (7-52) Units/L Alkaline Phosphatase 54 (34-104) Units/L Albumin 3.0 L (3.5-5.7) g/dL - VTE Reasons for not Prescribing Prophylaxis: Treatment not Indicated - Low risk for VTE Documentation of Mechanical Device: Intermittent pneumatic compression device Consult Discharge Plan - Plan Referrals: Jona Denton MD [Primary Care Provider] - Prescriptions: OxyCODONE/APAP 5/325 [Percocet 5/325 MG] 1 each PO Q6HR PRN 7 Days #28 tablet PRN Reason: Pain Ibuprofen [Motrin] 800 mg PO Q8HR PRN #42 tablet PRN Reason: Pain Ondansetron HCl [Zofran] 4 mg PO Q8HR PRN #15 tab PRN Reason: Nausea Docusate [Colace] 100 mg PO BID PRN #30 capsule PRN Reason: Constipation metroNIDAZOLE [Flagyl] 500 mg PO DAILY #5 tablet <Roddy Hummel - Last Filed: 03/13/18 10:45> Date of Encounter: 03/11/18 - Assessment and Plan (1) Small bowel obstruction Current Visit: Yes Status: Acute Objective Vital Signs - Last 8 Hours Temp Pulse Resp BP Pulse Ox 03/13/18 06:00 99.2 F 61 14 133/80 98 03/13/18 03:17 98.4 F 60 16 130/77 97 Intake and Output 03/12/18 03/13/18 03/13/18 23:59 07:59 15:59 Intake Total 340 / 340 340 / 340 Output Total 275 / 275 275 / 275 Balance 65 / 65 65 / 65 Intake: IV Fluids 100 / 100 100 / 100 Flagyl Premix 500 MG/100 ML 500 100 / 100 100 / 100 mg In 100 ml @ 100 mls/hr IVPB Q8HR [facility] Rx#:[id number] Oral 240 / 240 240 / 240 Output: Urine 275 / 275 275 / 275 Other: Meal Dinner Percent of Meal Consumed 100% # Voids 2 Weight 98.3 kg Patient Weight 03/13/18 23:59 Weight 98.3 kg - Labs 03/13/18 05:35 04/26/18 05:35 Diabetes panel 03/13/18 Range/Units 05:35 Sodium 140 (136-145) mEq/L Potassium 3.6 (3.5-5.1) mEq/L Chloride 105 (98-107) mEq/L Carbon Dioxide 29 (23-29) mEq/L BUN 8 (6-20) mg/dL Creatinine 0.75 (0.70-1.30) mg/dL Glucose 86 (70-105) mg/dL Calcium 8.2 L (8.6-10.3) mg/dL Calcium panel 03/13/18 Range/Units 05:35 Calcium 8.2 L (8.6-10.3) mg/dL Pituitary panel 03/13/18 Range/Units 05:35 Sodium 140 (136-145) mEq/L Potassium 3.6 (3.5-5.1) mEq/L Chloride 105 (98-107) mEq/L Carbon Dioxide 29 (23-29) mEq/L BUN 8 (6-20) mg/dL Creatinine 0.75 (0.70-1.30) mg/dL Glucose 86 (70-105) mg/dL Calcium 8.2 L (8.6-10.3) mg/dL Adrenal panel 03/13/18 Range/Units 05:35 Sodium 140 (136-145) mEq/L Potassium 3.6 (3.5-5.1) mEq/L Chloride 105 (98-107) mEq/L Carbon Dioxide 29 (23-29) mEq/L BUN 8 (6-20) mg/dL Creatinine 0.75 (0.70-1.30) mg/dL Glucose 86 (70-105) mg/dL Calcium 8.2 L (8.6-10.3) mg/dL - Attending Attestation I examined this patient and my medical decision-making was reviewed with the Resident Physician. I agree with the documented findings, disposition and treatment plan as described except to the extent set forth below. I reviewed the above and agree with the above plan.
--- NOTE | 2018-03-11 17:10 | Internal Med Progress Note ---
<ValerieflexBhaskar chaudhary - Last Filed: 03/11/18 17:08> Date of Encounter: 03/11/18 Time of Encounter: 10:07 - Assessment and plan (1) Abdominal pain Current Visit: Yes Status: Resolved Assessment and plan: Resolved Secondary to Acute SBO secondary to GI capsule study with questionable colitis on CT scan cont empirical abx of ceftriaxone, Flagyl day #5 Tolerating surgical pain well and has not used any pain medications in the last 24 hours Has Toradol and fentanyl when necessary Qualifiers: Abdominal location: generalized Qualified Code(s): R10.84 - Generalized abdominal pain (2) Nausea and vomiting Current Visit: Yes Status: Resolved Assessment and plan: cont anti emetics Asymptomatic at this time Qualifiers: Vomiting type: unspecified Vomiting Intractability: non-intractable Qualified Code(s): R11.2 - Nausea with vomiting, unspecified (3) Small bowel obstruction Current Visit: Yes Status: Acute Assessment and plan: s/p Exploratory celiotomy and Ileocectomy with anastamosis with general surgery- POD # 4 cont IV hydration Recommend starting TPN if unable to tolerate clear liquid diet which was started yesterday by surgical team. Nutritionally deficient on labs Reviewed abd X ray 03/09/18 - showed mildly distended SB, possible ileus, capsule near the hepatic flexure of the colon Clear liquid diet, NG tube Cont empirical abx Rocephin + Flagyl day #5 Cont post op care as per surgery recommendation Await return of bowel function to pull NG tube and start diet, will defer to surgery (4) DVT prophylaxis Current Visit: Yes Status: Acute Assessment and plan: Heparin 5000 units every 12 hours. - Time Spent With Patient Total time spent is greater than 50% in coordination of care (as documented) at patient's floor/unit and/or counseling patient: 25 - 35 minutes - Subjective Interval history: Patient seen and examined this morning sitting up at bedside. He states that his symptoms of nausea, vomiting, abdominal pain continued to be resolved. States that he has not passed gas or had a bowel movement however he does report frequent bowel sounds. He was started on a clear liquid diet yesterday per surgical team and is tolerating well. No signs of abdominal surgery infections including erythema, drainage from incision sites. - Constitutional Vitals: Temp Pulse Resp BP Pulse Ox 99.0 F 70 16 126/82 99 03/11/18 14:49 03/11/18 14:49 03/11/18 14:49 03/11/18 14:49 03/11/18 14:49 General appearance: Present: cooperative, A&O X 3, answers questions appropriately Exam: Gen.: Vitals noted. No acute distress. AAOx3 HEENT: PERRL/EOMI, oropharynx clear, Normocephalic, atraumatic, NG tube remains in place, not connected to wall suction Cardiac: RRR, no murmur, +S1/S2 Pulmonary: CTA bilaterally, no wheezes, rales or rhonchi, equal chest expansion Abdomen: soft, nontender, bowel sounds present, no guarding, no rebound MSK: ROM intact, no joint swelling noted Extremities: no BLE edema, nontender calf, no cyanosis or clubbing Neuro: A&Ox3, moves all extremities, no focal deficits Psych: Appropriate mood and behavior Internal Medicine: Result - Labs CBC & Chem 7: 03/11/18 05:22 03/11/18 05:22 Labs: Short CBC 03/11/18 Range/Units 05:22 WBC 5.8 (4.3-11.1) K/mcL Hgb 13.3 (12.9-16.9) g/dL Hct 40.9 (37.5-50.1) % Plt Count 144 (140-400) K/mcL Neutrophils # 4.2 (1.6-8.9) K/mcL BMP 03/11/18 05:22 Sodium 138 Potassium 3.4 L Chloride 105 Carbon Dioxide 27 BUN 9 Creatinine 0.65 L Glucose 95 Calcium 8.0 L Liver Function 03/11/18 Range/Units 05:22 Total Bilirubin 0.8 (0.3-1.0) mg/dL AST 12 L (13-39) Units/L ALT 17 (7-52) Units/L Alkaline Phosphatase 54 (34-104) Units/L Albumin 3.0 L (3.5-5.7) g/dL - Impressions Impressions KUB X-Ray 03/11/18 09:09 IMPRESSION: Nasogastric tube in unchanged position. No dilated bowel. Pill camera has advanced to the level of the right lower quadrant surgical anastomosis. D/ / 03/11/2018 11:46:19 Vladimir Capps MD / [facility] Interpreting Provider: Vladimir Capps MD - VTE Reasons for not Prescribing Prophylaxis: Treatment not Indicated - Low risk for VTE Documentation of Mechanical Device: Intermittent pneumatic compression device Consult Discharge Plan - Plan Referrals: Jona Denton MD [Primary Care Provider] - <Liliya Villegas - Last Filed: 03/11/18 18:04> Date of Encounter: 03/11/18 - Assessment and plan (1) Abdominal pain Current Visit: Yes Status: Resolved Qualifiers: Abdominal location: generalized Qualified Code(s): R10.84 - Generalized abdominal pain (2) Nausea and vomiting Current Visit: Yes Status: Resolved Qualifiers: Vomiting type: unspecified Vomiting Intractability: non-intractable Qualified Code(s): R11.2 - Nausea with vomiting, unspecified (3) Small bowel obstruction Current Visit: Yes Status: Acute (4) DVT prophylaxis Current Visit: Yes Status: Acute - Time Spent With Patient Total time spent is greater than 50% in coordination of care (as documented) at patient's floor/unit and/or counseling patient: - Constitutional Vitals: Temp Pulse Resp BP Pulse Ox 99.0 F 70 16 126/82 99 03/11/18 14:49 03/11/18 14:49 03/11/18 14:49 03/11/18 14:49 03/11/18 14:49 Internal Medicine: Result - Labs CBC & Chem 7: 03/11/18 05:22 03/11/18 05:22 Labs: Short CBC 03/11/18 Range/Units 05:22 WBC 5.8 (4.3-11.1) K/mcL Hgb 13.3 (12.9-16.9) g/dL Hct 40.9 (37.5-50.1) % Plt Count 144 (140-400) K/mcL Neutrophils # 4.2 (1.6-8.9) K/mcL BMP 03/11/18 05:22 Sodium 138 Potassium 3.4 L Chloride 105 Carbon Dioxide 27 BUN 9 Creatinine 0.65 L Glucose 95 Calcium 8.0 L Liver Function 03/11/18 Range/Units 05:22 Total Bilirubin 0.8 (0.3-1.0) mg/dL AST 12 L (13-39) Units/L ALT 17 (7-52) Units/L Alkaline Phosphatase 54 (34-104) Units/L Albumin 3.0 L (3.5-5.7) g/dL - Impressions Impressions KUB X-Ray 03/11/18 09:09 IMPRESSION: Nasogastric tube in unchanged position. No dilated bowel. Pill camera has advanced to the level of the right lower quadrant surgical anastomosis. D/ / 03/11/2018 11:46:19 Vladimir Capps MD / [facility] Interpreting Provider: Vladimir Capps MD - Attending Attestation I performed a history and physical examination of the patient and discussed his/ her management with the resident. I reviewed the residents note and agree with the documented findings and plan of care.
[2018-03-12] MEDS: *HR* Heparin 5,000 UNIT/ML VIAL SQ SCH ×2 (05:11→17:08)
[2018-03-12 05:31] LABS: Eosinophils % 3.2 %; Hematocrit 41.5 % (37.5-50.1); Hemoglobin 13.9 g/dL (12.9-16.9); Immature Granulocytes % 3.9 % (0-4); Lymphocytes % 14.2 %; Mean Corpuscular HGB Conc 33.5 g/dL (31.6-35.5); Mean Corpuscular Hemoglobin 30.3 pg (28.0-33.3); Mean Corpuscular Volume 90.4 fL (83.0-100.0); Mean Platelet Volume 9.3 fL (9.4-12.4); Monocytes % 10.5 %; Platelet Count 144 K/mcL (140-400); Red Blood Count 4.59 M/mcL (4.19-5.50); Segmented Neutrophils % 67.1 %
[2018-03-12 05:32] LABS: Basophils # 0.1 K/mcL (0.0-0.2); Basophils % 1.1 %; Eosinophils # 0.2 K/mcL (0.0-0.6); Lymphocytes # 0.8 K/mcL (0.6-4.6); Monocytes # 0.6 K/mcL (0.0-1.3); Neutrophils # 3.8 K/mcL (1.6-8.9)
[2018-03-12 05:51] LABS: BUN/Creatinine Ratio 17 (6-26); Blood Urea Nitrogen 10 mg/dL (6-20); Calcium 8.1 mg/dL (8.6-10.3); Carbon Dioxide 27 mEq/L (23-29); Chloride 105 mEq/L (98-107); Glucose 96 mg/dL (70-105); Osmolality,Calculated 285 (280-300); Potassium 3.5 mEq/L (3.5-5.1); Sodium 138 mEq/L (136-145); eGFR For African Americans > 60 (> 60); eGFR For Non-African Americans > 60 (> 60)
[2018-03-12] MEDS: MetroNIDAZOLE 500 MG/100 ML 500 MG/100 ML BAG IVPB SCH ×3 (09:44→23:37)
[2018-03-12] MEDS: cefTRIAXone 1,000 MG in Water for inj. (sterile) 20 ML 10 ML IVP SCH (09:45)
[2018-03-12] MEDS: Pantoprazole 40 MG VIAL IVP SCH (09:45)
--- NOTE | 2018-03-12 10:07 | General Surgery Progress Note ---
<Hai Camacho - Last Filed: 03/12/18 10:09> Date of Encounter: 03/12/18 Time of Encounter: 08:45 - Assessment and Plan (1) Small bowel obstruction Current Visit: Yes Status: Acute POD #5 s/p Exploratory celiotomy, Ileocectomy with anastamosis. Incision remains clean and dry Flatus yesterday Plan: Advancing diet to fulls for lunch today Supportive Care and pain control PPI therapy daily IS Q1H while awake continue abx per primary team continue to encourage ambulation Subjective Narrative: Mr. Joshi was able to pass flatus yesterday evening. He is tolerating his clear liquid diet started lunchtime yesterday without nausea, vomiting, or distention. His pain is in good control, he is afebrile. Objective Vital Signs - Last 8 Hours Temp Pulse Resp BP Pulse Ox 03/12/18 06:35 98.1 F 61 16 120/79 98 03/12/18 03:00 98.5 F 66 15 121/78 98 Intake and Output 03/11/18 03/12/18 03/12/18 23:59 07:59 15:59 Intake Total 100 / 100 0 / 0 240 / 240 Output Total 225 / 225 500 / 500 Balance -125 / -125 -500 / -500 240 / 240 Intake: IV Fluids 100 / 100 Flagyl Premix 500 MG/100 ML 500 100 / 100 mg In 100 ml @ 100 mls/hr IVPB Q8HR [facility] Rx#:[id number] Oral 0 / 0 0 / 0 240 / 240 Output: Urine 225 / 225 500 / 500 Other: Meal Breakfast Percent of Meal Consumed 100% Weight 93.7 kg Patient Weight 03/12/18 23:59 Weight 93.7 kg - General physical appearance well developed, well nourished, no distress - Eyes normal ocular movement - ENT normal mucosa - Neck Neck exam: no lymphadectomy - Respiratory normal expansion, normal respiratory effort, clear to auscultation - Cardiovascular Cardiovascular exam: Present: RRR, no murmurs/rubs/gallops. Absent: JVD - Abdomen Abdomen: Present: soft, non tender - Incision Incision: Present: clean and dry, intact. Absent: draining, erythema - Integumentary no abnormal pigmentation - Neurologic normal coordination, normal sensation - Psychiatric speech is normal, memory intact - Labs 03/12/18 05:18 03/12/18 05:18 Diabetes panel 03/12/18 Range/Units 05:18 Sodium 138 (136-145) mEq/L Potassium 3.5 (3.5-5.1) mEq/L Chloride 105 (98-107) mEq/L Carbon Dioxide 27 (23-29) mEq/L BUN 10 (6-20) mg/dL Creatinine 0.59 L (0.70-1.30) mg/dL Glucose 96 (70-105) mg/dL Calcium 8.1 L (8.6-10.3) mg/dL Calcium panel 03/12/18 Range/Units 05:18 Calcium 8.1 L (8.6-10.3) mg/dL Pituitary panel 03/12/18 Range/Units 05:18 Sodium 138 (136-145) mEq/L Potassium 3.5 (3.5-5.1) mEq/L Chloride 105 (98-107) mEq/L Carbon Dioxide 27 (23-29) mEq/L BUN 10 (6-20) mg/dL Creatinine 0.59 L (0.70-1.30) mg/dL Glucose 96 (70-105) mg/dL Calcium 8.1 L (8.6-10.3) mg/dL Adrenal panel 03/12/18 Range/Units 05:18 Sodium 138 (136-145) mEq/L Potassium 3.5 (3.5-5.1) mEq/L Chloride 105 (98-107) mEq/L Carbon Dioxide 27 (23-29) mEq/L BUN 10 (6-20) mg/dL Creatinine 0.59 L (0.70-1.30) mg/dL Glucose 96 (70-105) mg/dL Calcium 8.1 L (8.6-10.3) mg/dL - VTE Reasons for not Prescribing Prophylaxis: Treatment not Indicated - Low risk for VTE Documentation of Mechanical Device: Intermittent pneumatic compression device Consult Discharge Plan - Plan Referrals: Jona Denton MD [Primary Care Provider] - Prescriptions: OxyCODONE/APAP 5/325 [Percocet 5/325 MG] 1 each PO Q6HR PRN 7 Days #28 tablet PRN Reason: Pain Ibuprofen [Motrin] 800 mg PO Q8HR PRN #42 tablet PRN Reason: Pain Ondansetron HCl [Zofran] 4 mg PO Q8HR PRN #15 tab PRN Reason: Nausea Docusate [Colace] 100 mg PO BID PRN #30 capsule PRN Reason: Constipation metroNIDAZOLE [Flagyl] 500 mg PO DAILY #5 tablet <Roddy Hummel Rigo - Last Filed: 03/13/18 10:47> Date of Encounter: 03/12/18 - Assessment and Plan (1) Small bowel obstruction Current Visit: Yes Status: Acute Objective Vital Signs - Last 8 Hours Temp Pulse Resp BP Pulse Ox 03/13/18 06:00 99.2 F 61 14 133/80 98 03/13/18 03:17 98.4 F 60 16 130/77 97 Intake and Output 03/12/18 03/13/18 03/13/18 23:59 07:59 15:59 Intake Total 340 / 340 340 / 340 Output Total 275 / 275 275 / 275 Balance 65 / 65 65 / 65 Intake: IV Fluids 100 / 100 100 / 100 Flagyl Premix 500 MG/100 ML 500 100 / 100 100 / 100 mg In 100 ml @ 100 mls/hr IVPB Q8HR [facility] Rx#:[id number] Oral 240 / 240 240 / 240 Output: Urine 275 / 275 275 / 275 Other: Meal Dinner Percent of Meal Consumed 100% # Voids 2 Weight 98.3 kg Patient Weight 03/13/18 23:59 Weight 98.3 kg - Labs 03/13/18 05:35 03/13/18 05:35 Diabetes panel 03/13/18 Range/Units 05:35 Sodium 140 (136-145) mEq/L Potassium 3.6 (3.5-5.1) mEq/L Chloride 105 (98-107) mEq/L Carbon Dioxide 29 (23-29) mEq/L BUN 8 (6-20) mg/dL Creatinine 0.75 (0.70-1.30) mg/dL Glucose 86 (70-105) mg/dL Calcium 8.2 L (8.6-10.3) mg/dL Calcium panel 03/13/18 Range/Units 05:35 Calcium 8.2 L (8.6-10.3) mg/dL Pituitary panel 03/13/18 Range/Units 05:35 Sodium 140 (136-145) mEq/L Potassium 3.6 (3.5-5.1) mEq/L Chloride 105 (98-107) mEq/L Carbon Dioxide 29 (23-29) mEq/L BUN 8 (6-20) mg/dL Creatinine 0.75 (0.70-1.30) mg/dL Glucose 86 (70-105) mg/dL Calcium 8.2 L (8.6-10.3) mg/dL Adrenal panel 03/13/18 Range/Units 05:35 Sodium 140 (136-145) mEq/L Potassium 3.6 (3.5-5.1) mEq/L Chloride 105 (98-107) mEq/L Carbon Dioxide 29 (23-29) mEq/L BUN 8 (6-20) mg/dL Creatinine 0.75 (0.70-1.30) mg/dL Glucose 86 (70-105) mg/dL Calcium 8.2 L (8.6-10.3) mg/dL - Attending Attestation I examined this patient and my medical decision-making was reviewed with the Resident Physician. I agree with the documented findings, disposition and treatment plan as described except to the extent set forth below. I reviewed the above and agree with the above-mentioned plan.
--- NOTE | 2018-03-12 14:36 | Internal Med Progress Note ---
<RafiBhaskar chaudhary - Last Filed: 03/12/18 14:41> Date of Encounter: 03/12/18 Time of Encounter: 10:00 - Assessment and plan (1) Small bowel obstruction Status: Acute Assessment and plan: s/p Exploratory celiotomy and Ileocectomy with anastamosis with general surgery- POD # 5 Currently tolerating clear liquid diet without complaints and per surgery will advance to full liquid diet for lunch today Reviewed abd X ray 03/09/18 - showed mildly distended SB, possible ileus, capsule near the hepatic flexure of the colon Full liquid diet Cont empirical abx Rocephin + Flagyl day #6 Cont post op care as per surgery recommendation. Did not start a trial of methylnaltrexone starting yesterday for postop ileus Patient states that he is having flatus but no bowel movements recorded yet Continue supportive care (2) Abdominal pain Status: Resolved Assessment and plan: Resolved Secondary to Acute SBO secondary to GI capsule study with questionable colitis on CT scan cont empirical abx of ceftriaxone, Flagyl day #6 Tolerating surgical pain well and has not used any pain medications in the last 24 hours Has Toradol and fentanyl when necessary Qualifiers: Abdominal location: generalized Qualified Code(s): R10.84 - Generalized abdominal pain (3) Nausea and vomiting Status: Resolved Assessment and plan: cont anti emetics Asymptomatic at this time Qualifiers: Vomiting type: unspecified Vomiting Intractability: non-intractable Qualified Code(s): R11.2 - Nausea with vomiting, unspecified (4) DVT prophylaxis Status: Acute Assessment and plan: Heparin 5000 units every 12 hours. - Time Spent With Patient Total time spent is greater than 50% in coordination of care (as documented) at patient's floor/unit and/or counseling patient: less than 15 minutes - Subjective Interval history: Patient seen and examined this morning sitting up at bedside. He states overall he continues to improve and no complaints of pain, nausea, vomiting. States that he is now passing gas but is still not had a bowel movement. He is tolerating his clear liquid diet well and per surgery will advance to fulls. - Constitutional Vitals: Temp Pulse Resp BP Pulse Ox 98.4 F 72 16 116/76 97 03/12/18 10:32 03/12/18 10:32 03/12/18 10:32 03/12/18 10:32 03/12/18 10:32 General appearance: Present: cooperative, A&O X 3, answers questions appropriately Exam: Gen.: Vitals noted. No acute distress. AAOx3 HEENT: PERRL/EOMI, oropharynx clear, Normocephalic, atraumatic Cardiac: RRR, no murmur, +S1/S2 Pulmonary: CTA bilaterally, no wheezes, rales or rhonchi, equal chest expansion Abdomen: soft, nontender, BS noted, no guarding MSK: ROM intact, no joint swelling noted Extremities: no BLE edema, nontender calf, no cyanosis or clubbing Neuro: A&Ox3, moves all extremities, no focal deficits Psych: Appropriate mood and behavior Internal Medicine: Result - Labs CBC & Chem 7: 03/12/18 05:18 03/12/18 05:18 Labs: Short CBC 03/12/18 Range/Units 05:18 WBC 5.7 (4.3-11.1) K/mcL Hgb 13.9 (12.9-16.9) g/dL Hct 41.5 (37.5-50.1) % Plt Count 144 (140-400) K/mcL Neutrophils # 3.8 (1.6-8.9) K/mcL BMP 03/12/18 05:18 Sodium 138 Potassium 3.5 Chloride 105 Carbon Dioxide 27 BUN 10 Creatinine 0.59 L Glucose 96 Calcium 8.1 L - VTE Reasons for not Prescribing Prophylaxis: Treatment not Indicated - Low risk for VTE Documentation of Mechanical Device: Intermittent pneumatic compression device Consult Discharge Plan - Plan Additional Instructions: Please follow with primary care physician as well as your surgery follow-up. Take medications as prescribed and return to the emergency department with any worsening of symptoms. Referrals: Charlette Freire CNP [Advanced Practice Nurse] - 03/27/18 11:00 am Jona Denton MD [Primary Care Provider] - 03/18/18 11:30 am Prescriptions: OxyCODONE/APAP 5/325 [Percocet 5/325 MG] 1 each PO Q6HR PRN 7 Days #28 tablet PRN Reason: Pain Ibuprofen [Motrin] 800 mg PO Q8HR PRN #42 tablet PRN Reason: Pain Ondansetron HCl [Zofran] 4 mg PO Q8HR PRN #15 tab PRN Reason: Nausea Docusate [Colace] 100 mg PO BID PRN #30 capsule PRN Reason: Constipation metroNIDAZOLE [Flagyl] 500 mg PO DAILY #5 tablet <Liliya Villegas - Last Filed: 03/13/18 20:12> Date of Encounter: 03/13/18 - Assessment and plan (1) Abdominal pain Status: Resolved Qualifiers: Abdominal location: generalized Qualified Code(s): R10.84 - Generalized abdominal pain (2) Nausea and vomiting Status: Resolved Qualifiers: Vomiting type: unspecified Vomiting Intractability: non-intractable Qualified Code(s): R11.2 - Nausea with vomiting, unspecified (3) Small bowel obstruction Status: Acute (4) DVT prophylaxis Status: Acute - Time Spent With Patient Total time spent is greater than 50% in coordination of care (as documented) at patient's floor/unit and/or counseling patient: - Constitutional Vitals: Temp Pulse Resp BP Pulse Ox 99.0 F 65 15 132/82 98 03/13/18 11:12 03/13/18 11:12 03/13/18 11:12 03/13/18 11:12 03/13/18 11:12 Internal Medicine: Result - Labs CBC & Chem 7: 03/13/18 05:35 03/13/18 05:35 Labs: Short CBC 03/13/18 Range/Units 05:35 WBC 6.0 (4.3-11.1) K/mcL Hgb 14.0 (12.9-16.9) g/dL Hct 42.3 (37.5-50.1) % Plt Count 139 L (140-400) K/mcL Neutrophils # 3.6 (1.6-8.9) K/mcL BMP 03/13/18 05:35 Sodium 140 Potassium 3.6 Chloride 105 Carbon Dioxide 29 BUN 8 Creatinine 0.75 Glucose 86 Calcium 8.2 L - Impressions Impressions KUB X-Ray 03/11/18 09:09 IMPRESSION: Nasogastric tube in unchanged position. No dilated bowel. Pill camera has advanced to the level of the right lower quadrant surgical anastomosis. D/ / 03/11/2018 11:46:19 Vladimir Capps MD / terence Interpreting Provider: Vladimir Capps MD - Attending Attestation I performed a history and physical examination of the patient and discussed his/ her management with the resident. I reviewed the residents note and agree with the documented findings and plan of care.
[2018-03-13] MEDS: *HR* Heparin 5,000 UNIT/ML VIAL SQ SCH (05:16)
[2018-03-13 06:54] LABS: BUN/Creatinine Ratio 11 (6-26); Blood Urea Nitrogen 8 mg/dL (6-20); Calcium 8.2 mg/dL (8.6-10.3); Carbon Dioxide 29 mEq/L (23-29); Chloride 105 mEq/L (98-107); Glucose 86 mg/dL (70-105); Osmolality,Calculated 288 (280-300); Potassium 3.6 mEq/L (3.5-5.1); Sodium 140 mEq/L (136-145); eGFR For African Americans > 60 (> 60); eGFR For Non-African Americans > 60 (> 60)
[2018-03-13 07:45] LABS: Hematocrit 42.3 % (37.5-50.1); Immature Platelets 8.1 % (1.1-6.1); Mean Corpuscular HGB Conc 33.1 g/dL (31.6-35.5); Mean Corpuscular Hemoglobin 30.2 pg (28.0-33.3); Mean Corpuscular Volume 91.4 fL (83.0-100.0); Mean Platelet Volume 10.5 fL (9.4-12.4); Platelet Count 139 K/mcL (140-400); Red Blood Count 4.63 M/mcL (4.19-5.50); Red Cell Distribution Width 13.4 % (11.5-14.5)
[2018-03-13] MEDS: MetroNIDAZOLE 500 MG/100 ML 500 MG/100 ML BAG IVPB SCH (08:15)
[2018-03-13] MEDS: cefTRIAXone 1,000 MG in Water for inj. (sterile) 20 ML 10 ML IVP SCH (08:15)
[2018-03-13 08:21] LABS: Eosinophils # 0.5 K/mcL (0.0-0.6); Lymphocytes # 1.1 K/mcL (0.6-4.6); Monocytes # 0.8 K/mcL (0.0-1.3)
[2018-03-13 08:23] LABS: Neutrophils # 3.6 K/mcL (1.6-8.9); Platelet Estimate Normal (Normal)
--- NOTE | 2018-03-13 09:49 | General Surgery Progress Note ---
<Hai Camacho - Last Filed: 03/13/18 10:01> Date of Encounter: 03/13/18 Time of Encounter: 09:30 - Assessment and Plan (1) Small bowel obstruction Status: Acute POD #6 s/p Exploratory celiotomy, Ileocectomy with anastamosis. Incision remains clean and dry BM last night and this morning; afebrile, pain controlled, tolerating full liquid diet without nausea or vomiting. Plan: From surgery standpoint, patient is ready for discharge recommend 5 more days of flagyl; PO Advance diet as tolerated Supportive Care and pain control PPI therapy daily Surgical discharge instructions below; thank you for your time and the surgical consult. Please follow-up with [facility] in 2 weeks: March 27 at 11am with Charlette Freire CNP General Surgical Discharge Instructions 1. No pushing, pulling, or lifting greater than 15 lbs for 2-4 weeks (depending upon procedure). 2. You may shower beginning today, but no tub baths, soaking, or swimming for 2 weeks. 3. You may resume driving when you are off narcotics and are safe to react in a car. 4. Take ibuprofen every 8 hours for discomfort. If this does not relieve discomfort, you may take the as needed Percocet. Take narcotics as directed. Do not take more narcotics then directed and do not share your narcotics with any other person. Do not drink alcohol while on narcotics. 5. Take stool softeners (Colace) or a water based laxative (Miralax) while taking narcotics. You may hold for loose stools. 6. Report any fevers greater than 100.5F, increase abdominal discomfort, drainage that looks like pus, increased redness or pain at the surgical site, or any vomiting. 7. Report any pain in the calves, shortness of breath, or rapid heartbeat. 8. Follow-up in the office as directed. 9. If you were prescribed antibiotics, do not stop them without talking to your provider. Subjective Narrative: Mr. Joshi has had 2 BMs in the last 2 days; his pain is in good control; he remains afebrile, and is tolerating his meals (last meal was full liquids). He denies dyspnea, abdominal pain, or dysuria. Objective Vital Signs - Last 8 Hours Temp Pulse Resp BP Pulse Ox 03/13/18 06:00 99.2 F 61 14 133/80 98 03/13/18 03:17 98.4 F 60 16 130/77 97 Intake and Output 03/12/18 03/13/18 03/13/18 23:59 07:59 15:59 Intake Total 340 / 340 340 / 340 Output Total 275 / 275 275 / 275 Balance 65 / 65 65 / 65 Intake: IV Fluids 100 / 100 100 / 100 Flagyl Premix 500 MG/100 ML 500 100 / 100 100 / 100 mg In 100 ml @ 100 mls/hr IVPB Q8HR [facility] Rx#:[id number] Oral 240 / 240 240 / 240 Output: Urine 275 / 275 275 / 275 Other: Meal Dinner Percent of Meal Consumed 100% # Voids 2 Weight 98.3 kg Patient Weight 03/13/18 23:59 Weight 98.3 kg - General physical appearance well developed, well nourished, no distress - Eyes normal ocular movement - ENT normal mucosa - Neck Neck exam: no lymphadectomy - Respiratory normal expansion, normal respiratory effort, clear to auscultation - Abdomen Abdomen: Present: bowel sounds present, soft, non tender. Absent: guarding, rebound, rigid - Incision Incision: Present: clean and dry, intact. Absent: erythema - Integumentary no abnormal pigmentation - Neurologic normal coordination, normal sensation - Musculoskeletal normal posture - Psychiatric speech is normal, memory intact - Labs 03/13/18 05:35 03/13/18 05:35 Diabetes panel 03/13/18 Range/Units 05:35 Sodium 140 (136-145) mEq/L Potassium 3.6 (3.5-5.1) mEq/L Chloride 105 (98-107) mEq/L Carbon Dioxide 29 (23-29) mEq/L BUN 8 (6-20) mg/dL Creatinine 0.75 (0.70-1.30) mg/dL Glucose 86 (70-105) mg/dL Calcium 8.2 L (8.6-10.3) mg/dL Calcium panel 03/13/18 Range/Units 05:35 Calcium 8.2 L (8.6-10.3) mg/dL Pituitary panel 03/13/18 Range/Units 05:35 Sodium 140 (136-145) mEq/L Potassium 3.6 (3.5-5.1) mEq/L Chloride 105 (98-107) mEq/L Carbon Dioxide 29 (23-29) mEq/L BUN 8 (6-20) mg/dL Creatinine 0.75 (0.70-1.30) mg/dL Glucose 86 (70-105) mg/dL Calcium 8.2 L (8.6-10.3) mg/dL Adrenal panel 03/13/18 Range/Units 05:35 Sodium 140 (136-145) mEq/L Potassium 3.6 (3.5-5.1) mEq/L Chloride 105 (98-107) mEq/L Carbon Dioxide 29 (23-29) mEq/L BUN 8 (6-20) mg/dL Creatinine 0.75 (0.70-1.30) mg/dL Glucose 86 (70-105) mg/dL Calcium 8.2 L (8.6-10.3) mg/dL - VTE Reasons for not Prescribing Prophylaxis: Treatment not Indicated - Low risk for VTE Documentation of Mechanical Device: Intermittent pneumatic compression device Consult Discharge Plan - Plan Additional Instructions: Please follow with primary care physician as well as your surgery follow-up. Take medications as prescribed and return to the emergency department with any worsening of symptoms. Referrals: Charlette Freire CNP [Advanced Practice Nurse] - 03/27/18 11:00 am Jona Denton MD [Primary Care Provider] - 03/18/18 11:30 am Prescriptions: OxyCODONE/APAP 5/325 [Percocet 5/325 MG] 1 each PO Q6HR PRN 7 Days #28 tablet PRN Reason: Pain Ibuprofen [Motrin] 800 mg PO Q8HR PRN #42 tablet PRN Reason: Pain Ondansetron HCl [Zofran] 4 mg PO Q8HR PRN #15 tab PRN Reason: Nausea Docusate [Colace] 100 mg PO BID PRN #30 capsule PRN Reason: Constipation metroNIDAZOLE [Flagyl] 500 mg PO DAILY #5 tablet <Roddy Hummel - Last Filed: 03/14/18 06:30> Date of Encounter: 03/13/18 - Assessment and Plan (1) Small bowel obstruction Status: Acute Objective - Labs 03/13/18 05:35 03/13/18 05:35 Diabetes panel 03/13/18 Range/Units 05:35 Sodium 140 (136-145) mEq/L Potassium 3.6 (3.5-5.1) mEq/L Chloride 105 (98-107) mEq/L Carbon Dioxide 29 (23-29) mEq/L BUN 8 (6-20) mg/dL Creatinine 0.75 (0.70-1.30) mg/dL Glucose 86 (70-105) mg/dL Calcium 8.2 L (8.6-10.3) mg/dL Calcium panel 03/13/18 Range/Units 05:35 Calcium 8.2 L (8.6-10.3) mg/dL Pituitary panel 03/13/18 Range/Units 05:35 Sodium 140 (136-145) mEq/L Potassium 3.6 (3.5-5.1) mEq/L Chloride 105 (98-107) mEq/L Carbon Dioxide 29 (23-29) mEq/L BUN 8 (6-20) mg/dL Creatinine 0.75 (0.70-1.30) mg/dL Glucose 86 (70-105) mg/dL Calcium 8.2 L (8.6-10.3) mg/dL Adrenal panel 03/13/18 Range/Units 05:35 Sodium 140 (136-145) mEq/L Potassium 3.6 (3.5-5.1) mEq/L Chloride 105 (98-107) mEq/L Carbon Dioxide 29 (23-29) mEq/L BUN 8 (6-20) mg/dL Creatinine 0.75 (0.70-1.30) mg/dL Glucose 86 (70-105) mg/dL Calcium 8.2 L (8.6-10.3) mg/dL - Attending Attestation I examined this patient and my medical decision-making was reviewed with the Resident Physician. I agree with the documented findings, disposition and treatment plan as described except to the extent set forth below. I reviewed the above assessment and evaluation and agree with the above- mentioned plan
[2018-03-13 11:14] VITALS: BP 132/82
--- NOTE | 2018-03-13 13:57 | Discharge Summary ---
<BobyBhaskar forrest - Last Filed: 03/13/18 14:25> Orders not resulted at time of discharge: Pending orders 03/07/18 17:24 Surgical Pathology [PTH] Routine Date of Encounter: 03/13/18 Time of Encounter: 10:00 - Discharge Diagnosis (1) Small bowel obstruction Priority: Primary Status: Acute Assessment and Plan: s/p Exploratory celiotomy and Ileocectomy with anastamosis with general surgery- POD # 5 Currently tolerating clear liquid diet without complaints and per surgery will advance to full liquid diet for lunch today Reviewed abd X ray 03/09/18 - showed mildly distended SB, possible ileus, capsule near the hepatic flexure of the colon Full liquid diet Cont empirical abx Rocephin + Flagyl day #7. Complete. Cont post op care as per surgery recommendation. Did not start a trial of methylnaltrexone starting yesterday for postop ileus BM and flatus. OK for discharge by surgery Continue supportive care (2) Abdominal pain Priority: Secondary Status: Resolved Assessment and Plan: Resolved Secondary to Acute SBO secondary to GI capsule study with questionable colitis on CT scan cont empirical abx of ceftriaxone, Flagyl day #6 Tolerating surgical pain well and has not used any pain medications in the last 24 hours Has Toradol and fentanyl when necessary Qualifiers: Abdominal location: generalized Qualified Code(s): R10.84 - Generalized abdominal pain (3) Nausea and vomiting Priority: Secondary Status: Resolved Assessment and Plan: cont anti emetics Asymptomatic at this time Qualifiers: Vomiting type: unspecified Vomiting Intractability: non-intractable Qualified Code(s): R11.2 - Nausea with vomiting, unspecified (4) DVT prophylaxis Priority: Secondary Status: Acute Assessment and Plan: Heparin 5000 units every 12 hours. Hospital course: Mr. Joshi is a 53 year old male with no past medical history of present emergency department with a complaint of dental pain, nausea, vomiting 1 day. He was recently seen by commodity broker for possible Crohn's disease and had a pill endoscopy. He denies seeing a pill in his bowel movement. He states that he is unable to take oral intake. Vital signs in emergency department significant for a blood pressure 155/102, otherwise unremarkable. Lab results unremarkable. Abdominal CT obtained emergency department showed moderately distended small bowel loops with a metallic camera in the distal ileum suggestive of a small bowel obstruction. General surgery and gastroenterology were consulted in the emergency department and NG tube was placed. He was admitted to medicine service for further evaluation and management of a small bowel structured secondary likely to pill endoscopy. 10 course of hospital stay, patient did gradually improve. He received supportive treatment including nothing by mouth diet, NG tube however patient did not have improvement of symptoms. Patient did undergo an exploratory celiotomy with ileectomy and anastomosis on 03/07/18. He tolerated the procedure well. Continue supportive care after this and gradually he did not have return of bowel function. NG tube was removed without complication. On day of discharge, he was tolerating a soft diet, no complaints of nausea, vomiting, abdominal pain. General surgery team approves with discharge with close follow-up. He was given a course of Rocephin and Flagyl for possible colitis seen on CT scan. He will be discharged home in stable medical condition and instructed a follow-up with her primary care physician as well as surgery team. He was instructed to advance diet as tolerated and return to the emergency department with any worsening or return of symptoms. Pathology pending at this time. Discharge discussed with: patient, family - Time Spent with Patient Total time spent providing and/or coordinating discharge services: - Discharge Medications Prescriptions: OxyCODONE/APAP 5/325 [Percocet 5/325 MG] 1 each PO Q6HR PRN 7 Days #28 tablet PRN Reason: Pain Ibuprofen [Motrin] 800 mg PO Q8HR PRN #42 tablet PRN Reason: Pain Ondansetron HCl [Zofran] 4 mg PO Q8HR PRN #15 tab PRN Reason: Nausea Docusate [Colace] 100 mg PO BID PRN #30 capsule PRN Reason: Constipation metroNIDAZOLE [Flagyl] 500 mg PO DAILY #5 tablet Home Medications: Cetirizine HCl [All Day Allergy] 10 mg PO DAILY 03/06/18 [History] Docusate [Colace] 100 mg PO BID PRN #30 capsule 03/13/18 [Rx] Ibuprofen [Motrin] 800 mg PO Q8HR PRN #42 tablet 03/13/18 [Rx] Ondansetron HCl [Zofran] 4 mg PO Q8HR PRN #15 tab 03/13/18 [Rx] OxyCODONE/APAP 5/325 [Percocet 5/325 MG] 1 each PO Q6HR PRN 7 Days #28 tablet [Rx] metroNIDAZOLE [Flagyl] 500 mg PO DAILY #5 tablet 03/13/18 [Rx] Allergies/Adverse Reactions: 3 Allergy/AdvReac Type Severity Reaction Status Date / Time No Known Allergies Allergy Verified 03/06/18 15:38 Date of admission: 03/06/18 16:51 Primary care physician: Jona Denton MD Discharging clinician: Bhaskar Romero Anticipated date of discharge: 03/13/18 - Constitutional Vitals: Temp Pulse Resp BP Pulse Ox 99.0 F 65 15 132/82 98 03/13/18 11:12 03/13/18 11:12 03/13/18 11:12 03/13/18 11:12 03/13/18 11:12 General appearance: Present: cooperative, A&O X 3, answers questions appropriately Exam: Gen.: Vitals noted. No acute distress. AAOx3 HEENT: PERRL/EOMI, oropharynx clear, Normocephalic, atraumatic, MMM Cardiac: RRR, no murmur, +S1/S2 Pulmonary: CTA bilaterally, no wheezes, rales or rhonchi, equal chest expansion Abdomen: soft, nontender, BS noted, no guarding MSK: ROM intact, no joint swelling noted Extremities: no BLE edema, nontender calf, no cyanosis or clubbing Neuro: A&Ox3, moves all extremities, no focal deficits Psych: Appropriate mood and behavior - Patient Status Disposition: Home, Self-Care Condition: Fair Functional capacity at discharge: independent ambulation Overall status at discharge: patient is progressing back to baseline - Discharge Instructions Follow Up With: Charlette Freire CNP [Advanced Practice Nurse] - 03/27/18 11:00 am Jona Denton MD [Primary Care Provider] - 03/18/18 11:30 am Additional Instructions: Please follow with primary care physician as well as your surgery follow-up. Take medications as prescribed and return to the emergency department with any worsening of symptoms. - Diet and Activity Activity: increase activity as tolerated, resume usual activities as tolerated Diet: advance to your usual diet - VTE Reasons for not Prescribing Prophylaxis: Treatment not Indicated - Low risk for VTE Documentation of Mechanical Device: Intermittent pneumatic compression device <Liliya Villegas - Last Filed: 03/13/18 20:28> Date of Encounter: 03/13/18 - Discharge Diagnosis (1) Abdominal pain Status: Resolved Qualifiers: Abdominal location: generalized Qualified Code(s): R10.84 - Generalized abdominal pain (2) Nausea and vomiting Status: Resolved Qualifiers: Vomiting type: unspecified Vomiting Intractability: non-intractable Qualified Code(s): R11.2 - Nausea with vomiting, unspecified (3) Small bowel obstruction Status: Acute (4) DVT prophylaxis Status: Acute Hospital course: Mr. Joshi is a 53 year old male - Time Spent with Patient Total time spent providing and/or coordinating discharge services: Date of admission: 03/06/18 16:51 Primary care physician: Jona Denton MD - Constitutional Vitals: Temp Pulse Resp BP Pulse Ox 99.0 F 65 15 132/82 98 03/13/18 11:12 03/13/18 11:12 03/13/18 11:12 03/13/18 11:12 03/13/18 11:12 - Attending Attestation I performed a history and physical examination of the patient and discussed his/ her management with the resident. I reviewed the residents note and agree with the documented findings and plan of care.
[2018-03-13] MEDS ORDERED: metroNIDAZOLE 500 MG TABLET PO SCH (15:00)
== END 2018-03-13 15:32 | disposition home or self-care (01) | DRG 331 ==
LOC: EMEROO 12:32 → 3ANU 16:51
PROVIDERS: ADMIT Student in an Organized Health Care Education/Training Program; ATTEND Nurse Practitioner